=== PATIENT | female | born 1950 | race Two or more races ===

== ENCOUNTER 2025-05-08 12:56 | Emergency (ER) | payer OTHER, SELFPAY ==
--- NOTE | ~2025-05-08 | CT_ITS ---
CLINICAL HISTORY: R facial pain, pulsatile tinntus CT head without contrast Comparison: None available Findings: No acute hemorrhage. No extra-axial fluid collection. No hydrocephalus, mass-effect or herniation. Rodriguez-white differentiation is maintained. White matter is within normal limits for age. No acute orbital pathology. No acute soft tissue abnormality. No fracture. Mucosal thickening and fluid in the maxillary sinuses, [id number]. The other visualized paranasal sinuses are predominantly clear. Partial opacification of the right middle ear cavity with opacification of right mastoid air cells. The left middle ear cavity and mastoid air cells are clear. Impression: No acute intracranial findings. Sinusitis. Right otomastoiditis versus effusion. CTA of the head and neck with 3-D postprocessing Comparison: None available Findings: No significant carotid artery stenosis. Intact vertebral arteries. The vertebral basilar system is patent. The cerebellar and posterior cerebral arteries are intact. The intracranial internal carotid arteries are patent. The middle/anterior cerebral arteries are intact. No aneurysm, abrupt cutoffs or significant stenosis. Patent dural venous sinuses. Hypoplasia of the left transverse sinus, normal variant. No mass, midline shift, hydrocephalus, acute hemorrhage or abnormal contrast enhancement. Trace scarring at the left lung apex. Left lung apex nodule measuring 4 mm. The soft tissues of the head and neck are unremarkable. Impression: No aneurysm, abrupt cutoffs or significant stenosis. Pulmonary nodule measuring 4 mm, likely infectious/inflammatory. No follow-up is required in low risk individuals. High risk individuals have the option of a 1 year follow-up chest CT. This document has been electronically signed by: Yany Vasquez MD on 05/08/2025 18:57:58
[2025-05-08 13:17] VITALS: BP 151/71; PULSE 84; RESP 18; TEMP 36; O2SAT 97; BMI 29.8
--- NOTE | 2025-05-08 13:18 | ED.GENADULT ---
HPI - General Adult General Chief complaint: Ear Problems Stated complaint: gen med Time Seen by Provider: 05/08/25 15:51 History of Present Illness ED Provider: daija ANDERSEN narrative: Author / Clinician: Frankie Goldman MD Chief Complaint History of Present Illness ---74 F f iron deficiency anemia, B12 deficiency, asthma, hyperlipidemia, hypertension, atrophic gastritis, YOEL, eczema, hypertension, dyslipidemia, T2DM recent Tx with doxy, changed to Augmentin 04/20 after [facility] ED visit and CT showing poss mastoiditis. Review of Systems ---now describing pulsatile tinnitus and some headache right side no vision symptoms no focal motor deficits saw ENT about a week ago they told her to stop the Augmentin she had been on that for nearly the entire course without improvement. She is taking Tylenol some improvement. No ear discharge Physical Examination Vital Signs: Physical Exam: Gen: Alert, awake, well appearing, well hydrated. Head: Atraumatic Eyes: Anicteric, Normal conjunctiva. ENT: Moist mucosa, no pallor.Chronic appearing scarring favored over opacification of the tympanic membrane clear canal normal nontender external ear structures no bogginess or erythema over the mastoid and this is nontender. No palpable tenderness in the temporal area or over the temporal artery no TMJ tenderness no trismus clear patent oropharynx no regional lymphadenopathy Neck: Supple. Skin: Respiratory: Breathing comfortably, No distress.Clear to auscultation bilaterally, symmetric chest expansion, No wheeze, rales, ronchi. Cardiovascular: Regular rate and rhythm. No murmurs or rub. Well perfused periphery, warm extremities. No edema. Abdominal: Soft, no objective distension. No palpable masses or obvious organomegaly. No focal tenderness, no guarding, no rebound tenderness or other peritoneal findings. Neuro: Alert. Gross movement of all extremities intact. Psych: Calm --- Assessment & Plan Preliminary Differential: Less likely mastoiditis or otitis given the antibiotic courses, cervical cranial dissection possible given the pulsatile tinnitus Medical Decision Making This is a 74 female with ongoing ear facial pain, CT showed mastoid opacification on April 20 CT , previously been on doxycycline, on course of Augmentin, was seen by ENT it was possibly previously seen hemotympanum that no trauma nor any basilar skull fracture on previous imaging on the We will get angiographic imaging at this time to exclude cervical cranial dissection. At this point this is chronic Ear/facial pain of unclear cause looks well she is certainly not toxic she is able to swallow and speak normally and has follow up on Tuesday in 2 days with the ENT --- Risk: - High: Threat to life/bodily Functions Plan: Initial Plan --- ED Course, Updates [ ] Disposition [ ] Critical Care: [N/A] Related Data Previous Rx's ?Medication ?Instructions ?Recorded gabapentin 300 mg capsule 300 mg PO BEDTIME PRN pain (scale 05/08/25 score 4-6) #7 caps Allergies Allergy/AdvReac Type Severity Reaction Status Date / Time No Known Allergies Allergy Verified 05/08/25 13:20 Physical Exam ED Vital Signs: Vital Signs - 24 hr 05/08/25 13:17 05/08/25 19:41 05/08/25 19:44 Temperature 96.8 F 97.8 F 97.8 F Pulse Rate 84 79 78 Respiratory Rate 18 16 16 Blood Pressure 151/71 H 121/72 121/72 Pulse Oximetry 97 96 96 Oxygen Delivery Method Room Air Room Air Room Air BMI result Body Mass Index 29.8 Course Course Course Narrative: This is a rapid medical exam performed by Radha Brody NP: Additional HPI, ROS, PE not included below will be deferred to primary provider. Patient is a 74y/o F presenting with complaint of right ear pain and pressure for the past month. Has been seen multiple times, has seen ENT, has had CT scan x 2, has been on several courses of antibiotics but sxs persisting. Called ENT office this am but couldn't be seen in office today, referred here. Plan: labs Medical Decision Making Medical Decision Making [facility] Narrative: 74-year-old ongoing ear pain. Not fever not ill or toxic no ear discharge no obvious hemotympanum or signs of tympanic membrane bulging inner ear effusion. She did describe some pulsatile tinnitus I felt it reasonable to exclude cervical cranial dissection. At this point this has been excluded there was still some opacification of the mastoid though there was no overlying erythema there was no tenderness no focal neurologic deficits or significant headache to suggest intracranial extension or other severe complication. In fact when she was seen recently ENT told her to stop antibiotics I agree with this that this is unlikely to be infectious she may need further workup with and she is seeing ENT on Tuesday which is reassuring. Gabapentin and topical lidocaine drops as needed for pain control until that time Lab Data 05/08/25 13:37 05/08/25 13:37 Labs: Lab Results 05/08/25 Range/Units 13:37 WBC 9.1 (4.8-10.8) X10*3/uL RBC 3.97 L (4.20-5.50) X10*6/uL Hgb 12.8 (12.0-16.0) g/dl Hct 38.0 (37.0-47.0) % MCV 95.7 (80.0-98.0) fL MCH 32.2 (27.0-33.0) pg MCHC 33.7 (31.0-35.0) g/dl RDW 12.1 (11.0-16.0) % Plt Count 284 (160-400) X10*3/uL MPV 10.7 (9.4-12.3) fL Immature Gran % (Auto) 0.2 (0.0-0.4) % Neut % (Auto) 68.5 (45-73) % Lymph % (Auto) 21.5 (20-40) % [place] % (Auto) 5.1 (2-11) % Eos % (Auto) 4.1 H (0-4) % Baso % (Auto) 0.6 (0-2) % Lymph # (Auto) 2.0 (1.2-4.9) X10*3/uL [place] # (Auto) 0.5 (0.1-1.2) X10*3/uL Eos # (Auto) 0.4 (0.0-0.4) X10*3/uL Baso # (Auto) 0.1 (0.0-0.2) X10*3/uL Abs Immat Gran (auto) 0.02 (0.00-0.03) X10*3/uL Absolute Neuts (auto) 6.2 (2.0-8.3) x10*3/uL Absolute Nucleated RBC 0.000 (0.0-0.012) X10*3/uL Nucleated RBC % (auto) 0.0 (0.0-0.2) /100WBC ESR 17 (1-30) MM/HR Sodium 141 (135-145) mmol/L Potassium 4.1 (3.3-5.1) mmol/L Chloride 106 (96-108) mmol/L Carbon Dioxide 25 (22-29) mmol/L Anion Gap 14 (12-20) BUN 14 (9-16) mg/dL Creatinine 1.05 (0.5-1.4) mg/dL Estim Creat Clear Calc 54.6 Estimated GFR 52 Random Glucose 173 H (60-115) mg/dL Calcium 9.5 (8.4-10.2) mg/dL Total Bilirubin 0.3 (0.0-1.0) mg/dL AST 27 (5-31) U/L ALT 22 (0-31) U/L Alkaline Phosphatase 82 (39-117) U/L C-Reactive Protein < 0.04 (< or = 0.50) mg/dL Total Protein 7.0 (6.5-8.0) g/dL Albumin 4.2 (3.5-5.0) g/dL Discharge Plan Discharge Clinical Impression: Acute facial pain Patient Disposition: Home, Self-Care Instructions: Earache (ED) Additional Instructions: In the emergency department today you were evaluated. Your ear exam did not suggest an infectious process. You had no fever or chills or tenderness over your mastoid bone. CT was performed with contrast to evaluate your neck and head vessels which was not previously done given that you explain some audible pulsations which can sometimes be caused by a problem with these vessels but no significant or severe abnormality was seen Continue with your previous your nose throat specialist appointment this coming Tuesday in 2 days You can try the medication gabapentin which we have prescribed at nighttime before bed. You can also purchase [id number] otic solution lidocaine drops for the ear and follow the instructions this can sometimes help with the pain __ CT findings that you should follow up with your primary doctor about Impression: Right otomastoiditis CTA: No aneurysm, abrupt cutoffs or significant stenosis. Pulmonary nodule measuring 4 mm, likely infectious/inflammatory. No follow-up is required in low risk individuals. High risk individuals have the option of a 1 year follow-up chest CT. Prescriptions: New gabapentin 300 mg capsule 300 mg PO BEDTIME PRN (Reason: pain (scale score 4-6)) Qty: 7 0RF Interventions: ED Discharge Assessment Last Done: 05/08/25 19:44 Discharge Date/Time: 05/08/25 19:46 Print Language: Serbian
[2025-05-08 13:41] LABS: MANUAL DIFF FLAG NO
[2025-05-08 13:50] LABS: Hematocrit 38.0 % (37.0-47.0); Hemoglobin 12.8 g/dl (12.0-16.0); Imm Gran Abs Auto 0.02 X10*3/uL (0.00-0.03); Imm Gran Pct Auto 0.2 % (0.0-0.4); Lymphocytes Absolute Auto 2.0 X10*3/uL (1.2-4.9); Mean Corpuscular HGB Conc 33.7 g/dl (31.0-35.0); Mean Corpuscular Hemoglobin 32.2 pg (27.0-33.0); Mean Corpuscular Volume 95.7 fL (80.0-98.0); NRBC Abs Auto 0.000 X10*3/uL (0.0-0.012); NRBC Pct Auto 0.0 /100WBC (0.0-0.2); Platelet Count 284 X10*3/uL (160-400); Red Blood Count 3.97 X10*6/uL (4.20-5.50); White Blood Count 9.1 X10*3/uL (4.8-10.8)
[2025-05-08 13:59] LABS: Alanine Aminotransferase 22 U/L (0-31); Albumin Level 4.2 g/dL (3.5-5.0); Alkaline Phosphatase 82 U/L (39-117); Anion Gap 14 (12-20); Aspartate Amino Transferase 27 U/L (5-31); Blood Urea Nitrogen 14 mg/dL (9-16); Calcium 9.5 mg/dL (8.4-10.2); Carbon Dioxide 25 mmol/L (22-29); Chloride 106 mmol/L (96-108); Creatinine Clr Calc Pharmacy 54.6; Estimated Glomerular Filt Rate 52; Potassium 4.1 mmol/L (3.3-5.1); Sodium 141 mmol/L (135-145); Total Protein 7.0 g/dL (6.5-8.0)
--- OUTSIDE RECORDS SUMMARY | 2025-05-08 15:57 | XMS_ITS | Clinical Summary ---
Author Organization [facility] Prior to 10/13/24 Address [address] [place] [address] Care Team Providers Care Manufacturing Team Member Name Role Phone Abraham Roa MD Primary Care Pr ovider Allergies Active Allergy Reactions Criticality Noted Date Comments Moxifloxacin Itching,Rash Low 02/13/2018 Other reaction(s): Rash/Dermatitis Seasonal 10/29/2021 Medications Medication Sig Dispensed Refills Start Date End Date Status lisinopril (PRINIVIL,ZESTRIL) tablet 40 mg Take 1 tablet (40 mg total) by mouth daily. 0 02/17/2023 Active loratadine (CLARITIN) 10 MG tablet Take 1 tablet (10 mg total) by mouth. 0 02/17/2023 Active hydroCHLOROthiazide (HYDRODIURIL) tablet 12.5 mg Take 1 tablet (12.5 mg total) by mouth daily. 0 02/17/2023 Active simvastatin (ZOCOR) tablet 10 mg Take 1 tablet (10 mg total) by mouth every night at bedtime. 0 02/17/2023 Active metFORMIN (GLUCOPHAGE) 850 MG tablet Take 1 tablet (850 mg total) by mouth. 0 02/17/2023 Active Calcium Carb-Cholecalciferol 600-10 MG-MCG TABS Take 1 tablet by mouth 2 (two) times a day. 0 02/20/2023 Active Cyanocobalamin 2500 MCG SUBL TAKE 1 TABLET SUBLINGUAL EVERY 7 DAYS,X90 DAYS 0 07/07/2022 Active simethicone (MYLICON) 80 MG chewable tablet Chew 1 tablet (80 mg total) by mouth. 0 11/11/2022 Active fluticasone (FLONASE) 50 MCG/ACT nasal spray spray or apply 1 spray inside Nose. 0 02/17/2023 Active Trelegy Ellipta 200-62.5-25 MCG/ACT inhaler 1 puff daily. 0 03/14/2023 Active acetaminophen (TYLENOL EXTRA STRENGTH) 500 MG tablet Take 1 tablet (500 mg total) by mouth. 0 Active albuterol (PROVENTIL) (2.5 MG/3ML) 0.083% nebulizer solution Inhale 3 mL (2.5 mg total) into the lungs. 0 02/17/2023 Active meclizine (ANTIVERT) 25 MG tablet Take 1 tablet (25 mg total) by mouth 3 (three) times a day as needed for dizziness. 0 Active famotidine (PEPCID) 20 MG tablet 0 07/19/2023 Active Active Problems Problem Noted Date Diagnosed Date Asthma 03/25/2023 Social History Tobacco Use Types Packs/Day Years Used Date Smoking Tobacco: Never Assessed Sex and Gender Information Value Date Recorded Sex Assigned at Female 03/26/2023 11:53 AM EST Gender Identity Not on file Sexual Orientation Not on file Job Start Date Occupation Industry Not on file Not on file Not on file Last Filed Vital Signs Vital Sign Reading Time Taken Comments Blood Pressure 138/58 11/23/2023 2:32 PM EDT Pulse 83 11/23/2023 2:32 PM EDT Temperature 36.9 C (98.5 F) 11/23/2023 2:32 PM EDT Respiratory Rate 18 09/28/2023 1:00 PM EDT Oxygen Saturation 99% 11/23/2023 2:32 PM EDT Inhaled Oxygen Concentration - - Weight 84.6 kg (186 lb 8.2 oz) 11/23/2023 2:32 P M EDT Height - - Body Mass Index - - Plan of Treatment Health Maintenance Due Date Last Done Comments Hepatitis C Screening 1952 Depression Screening 1964 Preventative Health Evaluation 1970 Colon Cancer Screening (Colonoscopy) 1997 Breast Cancer Screening (Mammogram) 2002 Fall Risk Assessment 2017 Osteoporosis Screening (DEXA Scan) 2017 DTap / Tdap / Td (2 - Td or Tdap) 02/06/2018 02/07/2008 Shingrix-Zoster Vaccine (2 of 2) 04/21/2021 02/24/2021 COVID-19 Vaccine ( season) 2025 02/24/2021, 07/17/2020, 06/26/2020 Influenza Vaccine (#1) 2025 , 03/10/2022, 03/12/2020, Additional history exists RSV Adult > 60+ Yrs or (1 - 1-dose 75+ series) 12/28/2027 Pneumococcal Vaccine Completed 03/16/2023, 05/23/2018, 03/14/2014, Additional history exists Hepatitis B Vaccines Aged Out No long er eligible based on patient's age to complete this topic RSV Ped < 20 months Aged Out No longe r eligible based on patient's age to complete this topic Care Teams Manufacturing Team Member Relationship Specialty Start Date End Date Abraham Roa MD [address] [place] [address] PCP - General 03/23/23
--- OUTSIDE RECORDS SUMMARY | 2025-05-08 15:57 | XMS_ITS | Encounter Summary ---
Author Organization [facility] Address [address] [place] [address] Care Team Providers Care Operations Trainer Name Role Phone Abraham Roa MD Primary Care Pr ovider Encounter Details Date Type Department Care Team (Late st Contact Info) Description 03/21/2025 Results Follow-Up Adult Medicine [address] [phone] Ramona Abraham PA [address] [place] [address] Social History Tobacco Use Types Packs/Day Years Used Date Smoking Tobacco: Never Smokeless Tobacco: Never Alcohol Use Standard Drinks/Week Comments No 0 (1 standard drink = 0.6 oz pur e alcohol) Comments No Sex and Gender Information Value Date Recorded Sex Assigned at Not on file Legal Sex Female 12:52 AM EST Gender Identity Not on file Sexual Orientation Not on file documented as of this encounter Plan of Treatment Upcoming Encounters Date Type Department Care Team (Late Contact Info) Description 05/21/2025 9:45 AM EST Office Visit Pulmonology - [place] [address] [facility] [address] [place] [address] Nick Doyle MD [address] [place] [phone] 06/04/2025 8:30 AM EST Appointment [facility] Bone Density [address] [place] [phone] 06/11/2025 11:00 AM EST Office Visit Adult Medicine [address] [phone] Ramona Abraham PA [address] [place] [address] documented as of this encounter Visit Diagnoses Not on filedocumented in this encounter Additional Health Concerns Assessment Noted Time A fall risk assessment has been complete d for the patient 03/28/2024 2:11 PM EST documented as of this encounter Care Teams Operations Trainer Relationship Specialty Start Date End Date Abraham Roa MD [address] [place] [address] PCP - General Internal Medicine 03/28/24 documented as of this encounter
--- OUTSIDE RECORDS SUMMARY | 2025-05-08 15:57 | XMS_ITS | Continuity of Care Document ---
Author Organization [place] [facility], [facility] Address [address] [place] [address] Care Team Providers Care Performance Architect Name Role Phone GEGEJanell PEREZEVEANMOLXIOMARAJOSE MARIA Primary Care Provider Assessment Encounter Date Assessment Date Assessment LastModified by Organization Details LastModified Time 03/27/2025 03/27/2025 74-year-old female, with a history of type II diabetes mellitus and allergic rhinitis s/p revision ethmoidectomy and frontal exploration performed 10/09/[address] Watts, presents for follow up of recurrent sinusitis. Nasal endoscopy at the last visit was negative for purulence. Patient is still on the prednisone taper, but has nearly finished with Augmentin with little to no improvement in symptoms. Will plan to repeat CT imaging to rule out recurrent frontal and sphenoid sinus disease. If negative, consider referral to neurology for workup of underlying migraine which was previously suspected. Continue with saline irrigation and allergy regimen in the interim. All questions were answered. Not available 03/27/2025 22:24:46 Plan of Treatment Reminders Order Date Submit Date Provider Last Modified By Organization Details Last Modified Time Details Appointments Establish ed 15 2024 10:45A Jerardo FLORES MD Not available Not available Not available Establish ed 15 2025 09:30A Jerardo FLORES MD Not available Not available Not available Lab None recorded. Referral None recorded. Procedures None recorded. Surgeries None recorded. Imaging CT, sinuses, w/o contrast 2024 025 [email or web address] Not available 04/23/2025 15:44:23 Medication Orders None recorded. Patient TargetsNo targets recorded. Patient InstructionsNo instructions recorded. Reason for Referral None Reported. Problems Name Problem SNOMED Code Status Onset Date Resolution Date Notes Provider Name and Address Organization Details Recorded Time Nasal polyp Active 2014 Nasal polyposi s; Note: Date Diagnose d: 5 2:10 PM (471.9) Not Available [facility] 4 02:27:30 Chronic sinusiti s 39822547 Active 2015 Chronic sinusiti s; Note: Date Diagnose d: 5 2:10 PM (473.9) ; Start Date : 05/31/19 15 Sinus itis (chronic ) involvin g more than one sinus but not pansinus itis; Note: Date Diagnose d: 6 11:14 AM (J32.8) Not Available [facility] 4 02:27:40 Seasonal allergic rhinitis 089693111 Active 2015 Other seasonal allergic rhinitis ; Note: Date Diagnose d: 6 11:32 AM (J30.2) Not Available [facility] 4 02:27:48 Exacerba tion of moderate persiste nt asthma 496448279 Active 2016 Moderate persiste nt asthma with (acute) exacerba tion; Note: Date Diagnose d: 7 2:13 PM (J45.41) Not Available [facility] 4 02:27:54 Headache 60308593 Active 2017 Headache ; Note: Date Diagnose d: 8 2:18 PM (R51) Not Available [facility] 4 02:27:54 Dizzines s and giddines s 695397526 Active 2017 Dizzines s and giddines s; Note: Date Diagnose d: 8 2:18 PM (R42) Not Available [facility] 4 02:27:23 Migraine without aura, not refracto ry 965972296 Active 2017 Migraine without aura, not intracta ble, without status migraino jana; Note: Date Diagnose d: 05/12/20 18 2:45 PM (G43.009 ) Not Available [facility] 4 02:27:35 Sensorin eural hearing loss of bilatera l ears 216857187 Active 2018 Sensorin eural hearing loss, bilatera l; Note: Date Diagnose d: 9 11:30 AM (H90.3) Not Available [facility] 4 02:27:28 Disorder of nasal sinus 7851498 Active 2020 Other specifie d disorder s of nose and nasal sinuses; Note: Date Diagnose d: 04/01/20 21 11:03 AM (J34.89) Not Available [facility] 4 02:27:46 Disorder of the nose 44183912 Active 2020 Other specifie d disorder s of nose and nasal sinuses; Note: Date Diagnose d: 04/01/20 21 11:03 AM (J34.89) Not Available [facility] 4 02:27:46 Acute sinusiti s 61090527 Completed 202312/16/2023 Other acute sinusiti s; Note: Date Diagnose d: 06/24/2023 11:18 AM (J01.80) Not Available [facility] 4 02:27:48 Sensorin eural hearing loss of bilatera l ears 990689191 Active 2024 ULI dover [place] - [facility] 5 11:08:32 Bilatera l tinnitus 44636146683 02 Active 2024 Josr Magana, DO [address] [facility],[place] [address], [place], [address] , [place] - [facility] 5 14:29:02 Recurren t acute maxillar y sinusiti s Active 2024 MELYSSA HUANG [address] [facility] [address], [place], [address] , [place] - [facility] 5 10:06:34 Abnormal sensatio n 864765887 Active 2024 MELYSSA HUANG [address], [place], [address] , [place] - [facility] 5 13:01:51 Nasal congesti on 44512181 Active 2024 MELYSSA HUANG [address], [facility] [place], [address] , [facility] - [facility] 13:01:57 Posterio r rhinorrh ea 15465474 Active 2024 MELYSSA HUANG [address] [facility] [place],[facility] [address], [facility] [place], [address] , [place] - [facility] 13:02:02 Well controll ed type 2 diabetes mellitus 245892278 Active 2024 MELYSSA HUANG [address] [facility] [place] [address], [facility] [place], [address] , [place] - [facility] 13:02:36 Hemotymp rosalba of right tympanic cavity 35573340880 42525 Active 2024 MELYSSA HUANG [address] [facility] [place] [address], [facility] [place], [address] , [facility] - [facility] 14:49:03 Problem Notes None recorded. Procedures Surgical History Date Name Laterality Status Provider Name and Address Organization Details Recorded Time CT sinus - Xoran completed MELYSSA HUANG [address] [facility] [place] [address], [place], [address], [facility] - [facility] 05/05/2025 17:59:17 JMSNasal/Sinu s Endoscopy-REYNA OR surgical cavities completed MELYSSA HUANG [address] [facility] [place] [address], [place], [address], [facility] - [facility] 03/21/2025 12:31:32 Comp Audio with Tymps - 45281 & 64820 completed KING COLLINS [address] [facility], [place], [address], [facility] - [facility] 01/28/2025 13:31:46 Imaging Results None recorded. Procedure Notes None recorded. Medical Equipment None Reported. Allergies Allergen ID Allergen Name Allergen Category Reaction Reaction Severity Criticality Documentation Date Start Date Code Code System Note Provider Name and Address Organization Details Recorded Time 84960 moxifloxa césar medicatio n other Not available Not available 09/27/2023 87296 2 RxNorm React ion: unkno wn, unspe cifie d;; Not Available [facility] 4 00:55:47 Medications Name Sig Start Date Stop Date Status Note LastModified by Organization Details LastModified Time losartan 50 mg tablet TAKE 1 TABLET BY MOUTH 1 TIME EACH DAY. active Not Available Not Available No t Available buspirone 5 mg tablet TOME 1 TABLETA POR V A ORAL DOS VECES AL D A active Not Available Not Available No t Available metformin 500 mg tablet 05/21 completed Medicati on ID: [id number] D uration Value: 30 Reason: () Brand Name: dhaval matta Send Method: E-Prescr ibed Sub s Allowed: subs OK Speci al Instruct ion: TOME BENSON TABLETA POR BOCA 2 VECES DIARIO M edicatio nGeneric Name: dhaval matta Not Available Not Available Not Available atorvasta tin 80 mg tablet TOME 1 TABLETA POR V A ORAL TODOS LOS D AL ACOSTARS E active Not Available Not Available No t Available acetamino phen 325 mg tablet TOME DOS TABLETAS POR V A ORAL CADA SEIS HORAS CUANDO SEA NECESARI O FOR MILD PAIN active Not Available Not Available No t Available prednison e 10 mg tablet PLEASE SEE ATTACHED FOR DETAILED DIRECTIO NS active Not Available Not Available No t Available doxycycli ne hyclate 100 mg capsule PLEASE SEE ATTACHED FOR DETAILED DIRECTIO NS active Not Available Not Available No t Available ipratropi um 0.5 mg-albute rol 3 mg (2.5 mg base)/3 mL nebulizat ion soln USE 3 ML VIA NEBULIZE R EVERY 6 TO 8 HOURS NEEDED FOR WHEEZING active Not Available Not Available No t Available albuterol sulfate 2.5 mg/3 mL (0.083 %) solution for nebulizat ion INHALE 3 ML BY NEBULIZA TION EVERY 6 HOURS IF NEEDED FOR WHEEZING active Not Available Not Available No t Available azithromy césar 250 mg tablet TAKE 2 TABLETS BY MOUTH ON DAY 1 THEN 1 TABLET FOR 4 DAYS 01/28 completed Not Available Not Available Not Available ketotifen 0.025 % (0.035 %) eye drops APPLY 1 DROP INTO BOTH EYES TWICE DAILY active Not Available Not Available No t Available clarithro mycin 500 mg tablet 1 tablet by mouth 01/28 completed Medicati on ID: [id number] D uration Value: 20 Prescri bed By Name: MURIEL Kramer nd Name: morgan molina S end Method: E-Prescr ibed Sub s Allowed: subs OK Medic ationGen ericName : morgan omycin Not Available Not Available Not Available FreeStyle Lancets 28 gauge USE INSTRUCT ED TO CHECK BLOOD SUGAR TWICE DAILY active Not Available Not Available No t Available prednison e 20 mg tablet TAKE 2 TAB DAILY X 4 DAYS AND 1 TAB DAILY X4 DAYS 01/28 completed Not Available Not Available Not Available isosorbid e mononitra te ER 30 mg tablet,ex tended release 24 hr 01/28 completed Not Available Not Available Not Available metformin 850 mg tablet TAKE 1 TABLET BY MOUTH 1 (ONE) TIME EACH DAY WITH BREAKFAS T. active Not Available Not Available No t Available meclizine 12.5 mg tablet 05/21 completed Medicati on ID: [id number] D uration Value: 10 Reason: () Brand Name: meclizin e Send Method: E-Prescr ibed Sub s Allowed: subs OK Medic ationGen ericName : meclizin e Not Available Not Available Not Available aspirin 81 mg tablet,de layed release TAKE 1 TABLET BY MOUTH 1 TIME EACH DAY. active Not Available Not Available No t Available acetamino phen ER 650 mg tablet,ex tended release PLEASE SEE ATTACHED FOR DETAILED DIRECTIO NS active Not Available Not Available No t Available meclizine 25 mg tablet TAKE 1 TABLET BY MOUTH 3 TIMES A DAY IF NEEDED FOR DIZZINES S. active Not Available Not Available No t Available benzonata te 100 mg capsule TOME 1 C PSULA POR V A ORAL MARTI VECES AL D A CUANDO SEA NECESARI O FOR COUGH 04/30 completed Not Available Not Available Not Available doxycycli ne monohydra te 100 mg capsule TAKE 1 CAPSULE BY MOUTH TWICE DAILY FOR 7 DAYS 01/28 completed Not Available Not Available Not Available simvastat in 20 mg tablet TOME 1 TABLETA POR V A ORAL TODOS LOS D AL ACOSTARS E active Not Available Not Available No t Available metformin 1,000 mg tablet TOME BENSON TABLETA (1,000 MG TOTAL) POR V A ORAL 1 TIME EACH DAY CON EL DESAYUNO active Not Available Not Available No t Available prednison e 50 mg tablet TAKE 1 TABLET BY MOUTH DAILY FOR 5 DAYS 01/28 completed Not Available Not Available Not Available lidocaine 5 % topical patch APLIQUE UN PARCHE AL D A APPLY TO PAINFUL AREA FOR 12 HOURS PER DAY, REMOVE FOR 12 HOURS active Not Available Not Available No t Available losartan 25 mg tablet 01/28 completed Not Available Not Available Not Available Advair Diskus 500 mcg-50 mcg/dose powder for inhalatio n 05/21 completed Medicati on ID: [id number] D uration Value: 30 Brand Name: Advair Diskus S end Method: E-Prescr ibed Sub s Allowed: subs OK Speci al Instruct ion: INHALE 1 DOSIS POR V?A ORAL DOS VECES AL D?A. ENJU?LOPEZ SE LA BOCA DESPU ?S DE LA INHALACI ?N Medic ationGen ericName : Advair Diskus Not Available Not Available Not Available docusate sodium 100 mg capsule 01/28 completed Medicati on ID: [id number] D uration Value: 30 Brand Name: docusate sodium S end Method: E-Prescr ibed Sub s Allowed: subs OK Speci al Instruct ion: TOME BENSON C?PSULA DOS VECES AL D?A CUANDO SEA NECESARI O Medica tionGene ricName: docusate sodium Not Available Not Available Not Available mometason e 50 mcg/actua tion nasal spray ADMINIST ER 2 SPRAYS INTO EACH NOSTRIL 2 TIMES A DAY. active Not Available Not Available No t Available omeprazol e 20 mg capsule,d elayed release 01/28 completed Medicati on ID: [id number] D uration Value: 90 Brand Name: omeprazo le Send Method: E-Prescr ibed Sub s Allowed: subs OK Speci al Instruct ion: TOME BENSON CAPSULA TODOS LOS EISENBERG Med icationG enericNa me: omeprazo le Not Available Not Available Not Available budesonid e 0.5 mg/2 mL suspensio n for nebulizat ion 1 vial 01/28 completed Medicati on ID: [id number] D uration Value: 30 Brand Name: budhenrique de Send Method: E-Prescr ibed Sub s Allowed: subs OK Speci al Instruct ion: use 1 vial in nebulize r twice daily Me dication GenericN zuleika: budesoni de Not Available Not Available Not Available monteluka st 10 mg tablet TAKE 1 TABLET (10 MG TOTAL) BY MOUTH AT BEDTIME. AT BEDTIME. active Not Available Not Available No t Available cyanocoba cesar (vit B-12) 1,000 mcg sublingua l tablet DISSOLVE 1 TABLET UNDER THE TONGUE DAILY active Not Available Not Available No t Available hydrochlo rothiazid e 25 mg tablet 01/28 completed Medicati on ID: [id number] D uration Value: 30 Brand Name: hydrochl orothiaz joseph Send Method: E-Prescr ibed Sub s Allowed: subs OK Speci al Instruct ion: TAKE 1 TABLET BY MOUTH DAILY Me dication GenericN zuleika: hydrochl orothiaz joseph Not Available Not Available Not Available mupirocin 2 % topical ointment Apply 1 a small amount three times a day 01/28 completed Medicati on ID: [id number] D uration Value: 14 Prescri bed By Name: MURIEL Rooney nd Name: mupiroci n Send Method: E-Prescr ibed Sub s Allowed: subs OK Speci al Instruct ion: place in the nasal cavity 3 times daily to left nostril Medicati onGeneri cName: mupiroci n Not Available Not Available Not Available azelastin e 137 mcg (0.1 %) nasal spray ADMINIST ER 1 SPRAY INTO EACH NOSTRIL 2 TIMES A DAY DIRECTED active Not Available Not Available No t Available albuterol sulfate HFA 90 mcg/actua tion aerosol inhaler INHALE 2 PUFFS BY MOUTH EVERY 4 (FOUR) HOURS IF NEEDED FOR WHEEZING . active Not Available Not Available No t Available lisinopri l 40 mg tablet 01/28 completed Medicati on ID: [id number] D uration Value: 30 Brand Name: lisinopr il Send Method: E-Prescr ibed Sub s Allowed: subs OK Speci al Instruct ion: TOME BENSON TABLETA POR V?A ORAL TODOS LOS D? STOP 20 MG DOSE Med icationG enericNa me: lisinopr il Not Available Not Available Not Available fluticaso ne propionat e 50 mcg/actua tion nasal spray,jana pension 2019 active Medicati on ID: [id number] D uration Value: 90 Brand Name: fluticas one propiona te Send Method: E-Prescr ibed Sub s Allowed: subs OK Speci al Instruct ion: USE 2 SPRAYS IN EACH NOSTRIL ONCE A DAY Medi cationGe nericNam e: fluticas one propiona te Not Available Not Available Not Available loratadin e 10 mg tablet TAKE 1 TABLET BY MOUTH EVERY DAY active Not Available Not Available No t Available amoxicill in 875 mg-potass ium clavulana te 125 mg tablet TOME 1 TABLETA POR V A ORAL CADA 12 HORAS POR 10 D active Not Available Not Available No t Available cyclobenz aprine 5 mg tablet TAKE 1 TABLET BY MOUTH 3 TIMES A DAY,X3 DAYS 01/28 completed Not Available Not Available Not Available Xolair 150 mg subcutane ous solution 03/14 completed Medicati on ID: [id number] D uration Value: 28 Brand Name: Xolair S end Method: E-Prescr ibed Sub s Allowed: subs OK Medic ationGen ericName : Xolair Not Available Not Available Not Available metformin ER 500 mg tablet,ex tended release 24hr (osmotic) 11/07 completed Medicati on ID: [id number] R fransisco: () Brand Name: metformi n Send Method: E-Prescr ibed Sub s Allowed: subs OK Medic ationGen ericName : metformi n Not Available Not Available Not Available Calcium 600 + D(3) 600 mg-5 mcg (200 unit) tablet 2017 active Medicati on ID: [id number] D uration Value: 30 Brand Name: Calcium 600 + D(3) Sen d Method: E-Prescr ibed Sub s Allowed: subs OK Speci al Instruct ion: TOME BENSON TABLETA POR BOCA 2 VECES DIARIO M edicatio nGeneric Name: Calcium 600 + D(3) Not Available Not Available Not Available losartan 100 mg-hydroc hlorothia zide 12.5 mg tablet TAKE 1 TABLET BY MOUTH 1 TIME EACH DAY. active Not Available Not Available No t Available lubiprost one 24 mcg capsule TAKE 1 CAPSULE BY MOUTH TWICE DAILY active Not Available Not Available No t Available calcium 600 mg (as carbonate )-vitamin D3 10 mcg (400 unit) tablet TOME 1 TABLETA POR V A ORAL DOS VECES AL D A active Not Available Not Available No t Available hydrochlo rothiazid e 12.5 mg tablet TAKE 1 TABLET BY MOUTH 1 TIME EACH DAY. active Not Available Not Available No t Available FreeStyle Lite Meter kit USE TO CHECK BLOOD SUGAR ONCE DAILY active Not Available Not Available No t Available FreeStyle Lite Strips USE INSTRUCT ED TO CHECK BLOOD SUGAR TWICE DAILY active Not Available Not Available No t Available Neilmed Sinus Rinse Complete with packet Take 1 packet twice a day by nasal route. 2024 active Not Available Not Available Not Avai lable Xifaxan 550 mg tablet TOME BENSON TABLETA POR V A ORAL MARTI VECES AL D A FOR 14 DAYS 03/18 completed Not Available Not Available Not Available Breo Ellipta 200 mcg-25 mcg/dose powder for inhalatio n 2019 active Medicati on ID: [id number] D uration Value: 30 Brand Name: Breo Ellipta Send Method: E-Prescr ibed Sub s Allowed: subs OK Speci al Instruct ion: INHALE UN SOPLIDO ONCE A DAY Medi cationGe nericNam e: Breo Ellipta Not Available Not Available Not Available Spiriva Respimat 1.25 mcg/actua tion solution for inhalatio n 03/14 completed Medicati on ID: [id number] D uration Value: 30 Brand Name: Spiriva Respimat Send Method: E-Prescr ibed Sub s Allowed: subs OK Speci al Instruct ion: INHALE DANDO DOS SOPLIDOS ONCE A DAY Medi cationGe nericNam e: Spiriva Respimat Not Available Not Available Not Available Dupixent 300 mg/2 mL subcutane ous pen injector active Not Available Not Available Not Available Trelegy Ellipta 200 mcg-62.5 mcg-25 mcg powder for inhalatio n INHALE UN SOPLIDO A DIARIO AT THE SAME TIME EVERY DAY active Not Available Not Available No t Available Vitals Date Recorded Body height Body mass index (BMI) Body weight Systolic And Diastolic Provider Name and Address Organization Details Last Updated DateTime 03/27/2025 157.48 cm 34 kg/m2 02224.18 g 118/78 mm[Hg] Betsy Morales [place] - [facility] 03/27/2025 15:12:44 Social History None recorded. Functional Status None recorded. Mental Status None recorded. Family History Nothing Reported. Medical History No medical history recorded. Gynecological HistoryNo gynecological history recorded. Obstetrics History GPAL:G 0 P 0 0 0 0 Past Encounters Encounter ID Performer Location Encounter Start Date Encounter Closed Date Diagnosis/Indication Diagnosis SNOMED-CT Code Diagnosis ICD10 Code Diagnosis IMO Codes Diagnosis Note [id number] MELYSSA HUANG [facility] [address] [address] 03/21/2025 08:57:41 03/21/2025 10:11:56 Recurrent acute maxillary sinusitis 7024893276 2521633 J01.01 9635538 Abnormal sensation 37939 1999 R44.8 78492983 Nasal congestion 3100138 0 R09.81 39395 Posterior rhinorrhea 758 12527 R09.82 2557 Seasonal a llergic rhinitis 815010542 J30.2 Well contr olled type 2 diabetes mellitus 990667897 E11.9 860995 [id number] MELYSSA HUANG [facility] of [address] [address] 03/27/2025 14:44:40 03/27/2025 15:43:55 Recurrent acute maxillary sinusitis 9330203910 4009513 J01.01 9378761 Abnormal sensation 58260 1999 R44.8 86783652 Nasal congestion 9794105 0 R09.81 96590 Posterior rhinorrhea 758 44471 R09.82 2557 Seasonal a llergic rhinitis 146053839 J30.2 Well contr olled type 2 diabetes mellitus 271162923 E11.9 762723 Health Concerns Section Related Observation LastModified by Organization Detai ls LastModified Time None Recorded Concern Status LastModified by Organization Details LastModified Time None Recorded Payers Encounter Date Sequence Insurance Name Policy Number Policy Macedo Covered Member ID Macedo Member ID Guarantor Name 03/27/2025 1 [facility] - DOS ON OR AFTER 2022 - LONG TERM OPTIONS AND ONE CARE (MEDICARE REPLACEMENT/ADV ANTAGE - PPO) Sharri Pruett [id number] Sharri Pruett Notes Date Note Type Note Provider Name and Address Organization Details Recorded Time 03/27/2025 text/html ROS as noted in the HPI 74-year-old female, with a history of type II diabetes mellitus and allergic rhinitis s/p revision ethmoidectomy and frontal exploration performed 10/09/[address] Watts, presents for follow up of recurrent sinusitis. Patient is still on the prednisone taper and has a day left of Augmentin, however she is still having persistent pain in her cheeks, forehead, and the left side of her head. Denies fever and further discolored nasal drainage. RIP WATTS MD [address] [place] [address], [phone], [facility] - [facility] 03/28/2025 08:08:34 OBGyn Episode No OBEpisode recorded.
--- OUTSIDE RECORDS SUMMARY | 2025-05-08 15:57 | XMS_ITS | Continuity of Care Document ---
Author Organization [place] - [facility], [facility] Address [address] [place] [address] Care Team Providers Care Air Intercept Controller Name Role Phone LISA ROBERTSON Primary Care Provider Assessment Encounter Date Assessment Date Assessment LastModified by Organization Details LastModified Time 03/21/2025 03/21/2025 74-year-old female, with a history of allergic rhinitis s/p revision ethmoidectomy and frontal exploration performed 10/09/[address] Argueta, presents for evaluation of recurrent sinusitis. There is no appreciable purulence on anterior rhinoscopy and nasal endoscopy today. Patient is currently on a 10-day course of Augmentin prescribed by her primary care provider. Given her worsening facial pressure, will also plan to start her on a short prednisone taper to help reduce inflammation and swelling. Adverse effects were discussed. She has type II diabetes mellitus and has not been checking her blood sugar levels regularly, however her most recent vflxa-hl-gisg reading from a couple of days ago was between 130-140. I spoke with the triage nurse working with her primary care provider after today's visit who gave medical clearance for the prednisone taper. Her current A1c is 6.9 and she has a follow-up scheduled with them on 03/25/25. I will plan to see her back in 1-2 weeks to ensure resolution of the infection. Recommend she use saline irrigation and continue her allergy regimen in the interim. All questions were answered. Not available 03/21/2025 13:01:28 Plan of Treatment Reminders Order Date Submit Date Provider Last Modified By Organization Details Last Modified Time Details Appointments Establish ed 15 2024 10:45A M JOSR FLORES MD Not available Not available Not available Establish ed 15 2025 09:30A M JOSR FLORES MD Not available Not available Not available Lab None recorded. Referral None recorded. Procedures None recorded. Surgeries None recorded. Imaging None recorded. Medication Orders Neilmed Sinus Rinse Complete with packet [address] [id number], [address] [place], [address], 03/21/2025 10:07:17 prednison e 10 mg tablet [address] [id number], [address] [place], [address], 03/21/2025 13:00:53 Patient TargetsNo targets recorded. Patient InstructionsNo instructions recorded. Reason for Referral None Reported. Problems Name Problem SNOMED Code Status Onset Date Resolution Date Notes Provider Name and Address Organization Details Recorded Time Nasal polyp Active 2014 Nasal polyposi s; Note: Date Diagnose d: 5 2:10 PM (471.9) Not Available [facility] 4 02:27:30 Chronic sinusiti s 09232933 Active 2015 Chronic sinusiti s; Note: Date Diagnose d: 5 2:10 PM (473.9) ; Start Date : 05/31/19 15 Sinus itis (chronic ) involvin g more than one sinus but not pansinus itis; Note: Date Diagnose d: 6 11:14 AM (J32.8) Not Available [facility] 4 02:27:40 Seasonal allergic rhinitis 571308072 Active 2015 Other seasonal allergic rhinitis ; Note: Date Diagnose d: 6 11:32 AM (J30.2) Not Available [facility] 4 02:27:48 Exacerba tion of moderate persiste nt asthma 052852273 Active 2016 Moderate persiste nt asthma with (acute) exacerba tion; Note: Date Diagnose d: 7 2:13 PM (J45.41) Not Available [facility] 4 02:27:54 Headache 97784469 Active 2017 Headache ; Note: Date Diagnose d: 8 2:18 PM (R51) Not Available [facility] 4 02:27:54 Dizzines s and giddines s 161126824 Active 2017 Dizzines s and giddines s; Note: Date Diagnose d: 8 2:18 PM (R42) Not Available [facility] 4 02:27:23 Migraine without aura, not refracto ry 969162890 Active 2017 Migraine without aura, not intracta ble, without status migraino jana; Note: Date Diagnose d: 05/12/20 18 2:45 PM (G43.009 ) Not Available [facility] 4 02:27:35 Sensorin eural hearing loss of bilatera l ears 522894482 Active 2018 Sensorin eural hearing loss, bilatera l; Note: Date Diagnose d: 9 11:30 AM (H90.3) Not Available [facility] 4 02:27:28 Disorder of nasal sinus 8476313 Active 2020 Other specifie d disorder s of nose and nasal sinuses; Note: Date Diagnose d: 04/01/20 21 11:03 AM (J34.89) Not Available [facility] 4 02:27:46 Disorder of the nose 50764314 Active 2020 Other specifie d disorder s of nose and nasal sinuses; Note: Date Diagnose d: 04/01/20 21 11:03 AM (J34.89) Not Available [facility] 4 02:27:46 Acute sinusiti s 91567212 Completed 202312/16/2023 Other acute sinusiti s; Note: Date Diagnose d: 06/24/2023 11:18 AM (J01.80) Not Available [facility] hospital 4 02:27:48 Sensorin eural hearing loss of bilatera l ears 776134835 Active 2024 ULI dover [place] - [facility] 5 11:08:32 Bilatera l tinnitus 95005655407 02 Active 2024 Josr Magana, [address], [place], [place], [address] , [facility] - [facility] [place] 5 14:29:02 Recurren t acute maxillar y sinusiti s Active 2024 MELYSSA HUANG [address], [place], [place], [address] , [place] - [facility] [place] 5 10:06:34 Abnormal sensatio n 675093306 Active 2024 MELYSSA HUANG [address], [place], [place], [address] , [place] - [facility] [place] 5 13:01:51 Nasal congesti on 98790499 Active 2024 MELYSSA HUANG [address], [place], [place], [address] , [place] - [facility] [place] 5 13:01:57 Posterio r rhinorrh ea 75618372 Active 2024 MELYSSA HUANG [address], [place], [place], [address] , [place] - [facility] [place] 13:02:02 Well controll ed type 2 diabetes mellitus 533606466 Active 2024 MELYSSA HUANG [address], [place], [place], [address] , 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 - [facility] [place] 14:49:03 Problem Notes None recorded. Procedures Surgical History Date Name Laterality Status Provider Name and Address Organization Details Recorded Time CT sinus - Xoran completed MELYSSA HUANG [address], [place], [address], [facility] 05/05/2025 17:59:17 5 JMSNasal/Sinu s Endoscopy-REYNA OR surgical cavities completed MELYSSA HUANG [address] [facility],[place] [address], [place], [address], [facility] 03/21/2025 12:31:32 5 Comp Audio with Tymps - 84610 & 04459 completed KING COLLINS [address] [facility] [address], [place], [address], [facility] 01/28/2025 13:31:46 Imaging Results None recorded. Procedure Notes None recorded. Medical Equipment None Reported. Allergies Allergen ID Allergen Name Allergen Category Reaction Reaction Severity Criticality Documentation Date Start Date Code Code System Note Provider Name and Address Organization Details Recorded Time 07785 moxifloxa césar medicatio n other Not available Not available 09/27/2023 81559 2 RxNorm React ion: unkno wn, unspe cifie d;; Not Available [facility] 4 00:55:47 Medications Name Sig Start Date [...] mg tablet 05/21 completed Medicati on ID: [id number] D uration Value: 30 Reason: () Brand Name: dhaval matta Send Method: E-Prescr ibed Sub s Allowed: subs OK Speci al Instruct ion: TOME BENSON TABLETA POR BOCA 2 VECES DIARIO M edicatio nGeneric Name: dhaval n Not Available Not Available Not Available atorvasta [...] by mouth 01/28 completed Medicati on ID: [id number] D uration Value: 20 Prescri bed By Name: MURIEL Kramer nd Name: morgan molina S end Method: E-Prescr ibed Sub s Allowed: subs OK Medic ationGen ericName : clarithr omycin Not Available Not Available Not Available [...] mg tablet 05/21 completed Medicati on ID: [id number] D uration Value: 10 Reason: () Brand [...] inhalatio n 05/21 completed Medicati on ID: [id number] D uration Value: 30 Brand Name: Advair [...] mg capsule 01/28 completed Medicati on ID: [id number] D uration Value: 30 Brand Name: docusate [...] elayed release 01/28 completed Medicati on ID: [id number] D uration Value: 90 Brand Name: omeprazo le Send Method: E-Prescr ibed Sub s Allowed: subs OK Speci al Instruct ion: TOME BENSON CAPSULA TODOS LOS EISENBERG Med icationG enericNa me: omeprazo le Not Available Not Available Not Available budesonid e 0.5 mg/2 mL suspensio n for nebulizat ion 1 vial 01/28 completed Medicati on ID: [id number] D uration Value: 30 Brand Name: budesoni de Send Method: E-Prescr ibed Sub s [...] mg tablet 01/28 completed Medicati on ID: [id number] D uration Value: 30 Brand Name: hydrochl orothiaz joseph Send Method: E-Prescr ibed Sub s Allowed: subs OK Speci al Instruct ion: TAKE 1 TABLET BY MOUTH DAILY Me dication GenericN zuleika: hydrochl orothiaz joseph Not Available Not Available Not Available mupirocin 2 % topical ointment Apply 1 a small amount three times a day 01/28 completed Medicati on ID: [id number] D uration Value: 14 Prescri bed By Name: MURIEL Rooney nd Name: alyssia n Send Method: E-Prescr ibed Sub s Allowed: subs OK Speci al Instruct ion: place in the nasal cavity 3 times daily to left nostril Medicati onGeneri cName: darleenroci n Not Available Not Available Not Available [...] mg tablet 01/28 completed Medicati on ID: [id number] D uration Value: 30 Brand Name: lisinopr il Send Method: E-Prescr ibed Sub s Allowed: subs OK Speci al Instruct ion: TOME BENSON TABLETA POR V?A ORAL TODOS LOS D? STOP 20 MG DOSE Med icationG enericNa me: lisinopr il Not Available Not Available Not Available fluticaso ne propionat e 50 mcg/actua tion nasal spray,jana pension 2019 active Medicati on ID: [id number] D uration Value: 90 Brand Name: fluticas [...] ous solution 03/14 completed Medicati on ID: [id number] D uration Value: 28 Brand Name: Xolair S end Method: E-Prescr ibed Sub s Allowed: subs OK Medic ationGen ericName : Xolair Not Available Not Available Not Available metformin ER 500 mg tablet,ex tended release 24hr (osmotic) 11/07 completed Medicati on ID: [id number] R fransisco: () Brand Name: metformi n Send Method: E-Prescr ibed Sub s Allowed: subs OK Medic ationGen ericName : metformi n Not Available Not Available Not Available Calcium 600 + D(3) 600 mg-5 mcg (200 unit) tablet 2017 active Medicati on ID: [id number] D uration Value: 30 Brand Name: Calcium [...] inhalatio n 2019 active Medicati on ID: [id number] D uration Value: 30 Brand Name: Breo Ellipta Send Method: E-Prescr ibed Sub s Allowed: subs OK Speci al Instruct ion: INHALE UN SOPLIDO ONCE A DAY Medi cationGe nericNam e: Breo Ellipta Not Available Not Available Not Available Spiriva Respimat 1.25 mcg/actua tion solution for inhalatio n 03/14 completed Medicati on ID: [id number] D uration Value: 30 Brand Name: Spiriva [...] height Body mass index (BMI) Body weight Provider Name and Address Organization Details Last Updated DateTime 03/21/2025 157.48 cm 34 kg/m2 94922.18 g Mitchell Cardenas [place] - [facility] 03/21/2025 09:10:34 Social History None recorded. Functional Status None recorded. Mental Status None recorded. Family History Nothing Reported. Medical History No medical history recorded. Gynecological HistoryNo gynecological history recorded. Obstetrics History GPAL:G 0 P 0 0 0 0 Past Encounters Encounter ID Performer Location Encounter Start Date Encounter Closed Date Diagnosis/Indication Diagnosis SNOMED-CT Code Diagnosis ICD10 Code Diagnosis IMO Codes Diagnosis Note [id number] MELYSSA HUANG [facility] on [address] [place] [address] 03/21/2025 08:57:41 03/21/2025 10:11:56 Recurrent acute maxillary sinusitis 1519221167 9817858 J01.01 6552643 Abnormal sensation 44694 1999 R44.8 16780765 Nasal congestion 3175549 0 R09.81 01630 Posterior rhinorrhea 758 77874 R09.82 2557 Seasonal a llergic rhinitis 280996912 J30.2 Well contr olled type 2 diabetes mellitus 974996113 E11.9 711765 Health Concerns Section Related Observation LastModified by Organization Detai ls LastModified Time None Recorded Concern Status LastModified by Organization Details LastModified Time None Recorded Payers Encounter Date Sequence Insurance Name Policy Number Policy Macedo Covered Member ID Macedo Member ID Guarantor Name 03/21/2025 1 [facility] - DOS ON OR AFTER 2022 - [employer] (MEDICARE REPLACEMENT/ADV ANTAGE - PPO) Sharri Pruett [id number] Sharri Pruett Notes Date Note Type Note Provider Name and Address Organization Details Recorded Time 03/21/2025 text/html ROS as noted in the HPI 74-year-old female, with a history of allergic rhinitis s/p revision ethmoidectomy and frontal exploration performed 10/09/[address] Argueta, presents with her daughter for evaluation of recurrent sinusitis. Patient was prescribed a 10-day course of Augmentin 3 days ago by her primary care provider for facial pressure, headache, and yellow-green nasal discharge. She states the pain in her cheeks, forehead, and left side of the head have worsened over the past few days. Patient also endorses nasal congestion and postnasal drip. Denies fever. Last sinus infection was a year ago, but not as bad as it is right now. History of type II diabetes. She admits she does not regularly check her blood sugar levels. Most recent reading from a couple of days ago was 130-140. SAMIR ALMANZA MD [address] [place] [address], [address], [facility] - [facility] 03/21/2025 16:53:23 OBGyn Episode No OBEpisode recorded.
--- OUTSIDE RECORDS SUMMARY | 2025-05-08 15:57 | XMS_ITS | Encounter Summary ---
Author Organization [facility] Address [address] [place] [address] Care Team Providers Care Credit Risk Manager Name Role Phone Abraham Roa MD Primary Care Pr ovider Encounter Details Date Type Department Care Team (Late Contact Info) Description 04/24/2025 Results Follow-Up Adult Medicine [address] [phone] Abraham Roa MD [address] [place] [address] Social History Tobacco Use Types Packs/Day Years [...] 9:45 AM EST Office Visit Pulmonology - [address] [place] [address] Nick Doyle MD [address] [place] [address] 06/04/2025 8:30 AM EST Appointment [facility] [address] [place] [address] 06/11/2025 11:00 AM EST Office Visit Adult Medicine [address] [phone] Ramona Abraham PA [address] [place] [address] documented as of this encounter Visit Diagnoses Not on filedocumented in this encounter Additional Health Concerns Assessment Noted Time A fall risk assessment has been complete d for the patient 03/28/2024 2:11 PM EST documented as of this encounter Care Teams Credit Risk Manager Relationship Specialty Start Date End Date Abraham Roa MD [address] [place] [address] PCP - General Internal Medicine 03/28/24 documented as of this encounter
--- OUTSIDE RECORDS SUMMARY | 2025-05-08 15:57 | XMS_ITS | Encounter Summary ---
Author Organization [facility] Address [address] [place] [address] Care Team Providers Care Shoe Trimmer Name Role Phone Abraham Roa MD Primary Care Pr ovider Encounter Details Date Type Department Care Team (Late Contact Info) Description 04/29/2025 Telephone Adult Medicine [address] [phone] Abraham Roa MD [address] [place] [address] Social History Tobacco Use Types Packs/Day Years [...] on file documented as of this encounter Progress Notes * Marietta Lake RN - 05/03/2025 3:25 PM EST Called pt and advised her of the message below from Dr. Roa. She is in agreement with this plan but is hesitant r/t the intermittent dizziness she is currently experiencing r/t head/ear congestion. She was seen in the office for these symptoms on 04/26/25 referred to ENT and started on antibiotics. She states she will start the medication tomorrow as she took her other medications today, rycjemdf92 mg and HCTZ 12.5 mg. * Abraham Roa MD - 05/03/2025 3:05 PM EST Pls inform the patient that She should try the medication. Any medicine has the possibility of sideeffects and the new medications are similar to what she was on before just a combined pill now. If she has side effects she can report this to us but she would not know unless she tries the medicine and her blood pressure was very high. Thanks * MELYSSA Gustafson - 05/03/2025 10:05 AM EST Saw PCP 04/26 and medication changed. FYI PCP * Dolores Polanco MA - 05/02/2025 1:10 PM EST Ramona, Please review patient's TE message, she did not start her new medications because of the secondary effects. * Violette Patel - 04/29/2025 2:36 PM EST Medication Problem: Patient is aware that Dr Roa is out of office until 05/01 - will need [employer] [employer] when calling her back What is the name of the medication patient is having a problem with?: losartan-hydroCHLOROthiazide (Hyzaar) 100-12.5 mg per tablet What is the problem?: Patient states pharmacy told her of some side effects in which now she is afraid to take this increased dosage Who is calling about the problem? : The patient Is this a NEW medication?: yes How long has the patient been taking this medication? Hasn't taken the new dosage yet Who prescribed this medication for the patient? Abraham Roa MD Who is patients PCP?: Abraham Roa MD Payor: [facility] / Plan: [facility] / Product Type: *No Product type* / documented in this encounter Plan of Treatment Upcoming Encounters Date Type Department Care Team (Late st Contact Info) Description 05/21/2025 9:45 AM EST Office Visit Pulmonology - [place] [address] [facility] [address] [place] [address] Nick Doyle MD [address] [place] [address] 06/04/2025 8:30 AM EST Appointment [facility] [address] [place] [phone] 06/11/2025 11:00 AM EST Office Visit Adult Medicine [address] [phone] Ramona Abraham PA [address] [place] [address] documented as of this encounter Visit Diagnoses Not on filedocumented in this encounter Additional Health Concerns Assessment Noted Time A fall risk assessment has been complete d for the patient 03/28/2024 2:11 PM EST documented as of this encounter Care Teams Shoe Trimmer Relationship Specialty Start Date End Date Abraham Roa MD [address] [place] [address] PCP - General Internal Medicine 03/28/24 documented as of this encounter
--- OUTSIDE RECORDS SUMMARY | 2025-05-08 15:57 | XMS_ITS | Data Portability ---
Author Organization [place] [facility], Allergy Address [address] [address] Care Team Providers Care Spout Liner Helper Name Role Phone Janell ROBERTSONRAZIAJOSE MARIA Primary Care Provider Assessment Encounter Date Assessment Date Assessment LastModified by Organization Details LastModified Time 01/28/2025 01/28/2025 The patient has evidence today of significant hearing loss in both ears, as noted above. We discussed that the patient would be an excellent candidate for hearing amplification and discussed its benefits which include improved hearing, potential tinnitus reduction, reduction in the rate of cognitive decline, and reduction in the prevalence of depression or mental health disorders. Otologic examination today does not reveal any contraindications for the use of hearing amplification. The patient would like to pursue this, I will provide them with medical clearance today. I provided them a list of labor arbitrator hearing office's within the region to choose from. [email or web address] Not available 01/28/2025 14:28:58 03/21/2025 03/21/2025 74-year-old fema roxanna, with a history of allergic rhinitis s/p revision ethmoidectomy and frontal exploration performed 10/09/[address] Watts, presents for evaluation of recurrent sinusitis. There [...] sugar levels regularly, however her most recent nkaku-kk-odip reading from a couple of days ago [...] questions were answered. Not available 03/21/2025 13:01:28 03/27/2025 03/27/2025 74-year-old femjoanna mcknight, with a history of type II diabetes [...] questions were answered. Not available 03/27/2025 22:24:46 04/30/2025 04/30/2025 74-year-old [place]-speaking female, with a history of type II diabetes mellitus and allergic rhinitis s/p revision ethmoidectomy and frontal exploration performed 10/09/[address] Watts, presents for follow-up of recurrent sinusitis and sinus imaging. In-office CT sinus performed today demonstrates partial opacification of the bilateral maxillary sinuses, right greater than left. Previous nasal endoscopy was negative for purulence. 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 Patient was advised to complete Augmentin course and take Tylenol as needed for pain management. Will hold off on additional pharmaceutical therapy at this time. I will arrange follow-up with one of the surgeons for reevaluation and further guidance. All questions were answered. Case discussed with Dr. Watts who agrees with this plan. Not available 05/05/2025 17:57:13 Plan of Treatment Reminders Order Date Submit Date Provider Last Modified By Organization Details Last Modified Time Details Appointments Establish ed 15 2024 10:45A M JOSR FLORES MD Not available Not available Not available Establish ed 15 2025 09:30A M JOSR FLORES MD Not available Not available Not available Lab unlisted lab - C-anca+P- anca w/reflex 2024 JOHN [facility] (Centralized Electronic Ordering - All Locations), Patient Can Go To The Location Of Their Choice, [id number] 05/07/2025 16:27:57 myelopero xidase, QN, plasma 2024 025 JOHN [facility] (Centralized Electronic Ordering - All Locations), Patient Can Go To The Location Of Their Choice, [id number] 05/07/2025 16:27:57 ESR (erythroc yte sedimenta tion rate), blood 2024 JOHN [facility] (Centralized Electronic Ordering - All Locations), Patient Can Go To The Location Of Their Choice, [id number] 05/01/2025 14:52:17 CBC w/ auto diff 2024 HIAWATHA [facility] (Centralized Electronic Ordering - All Locations), Patient Can Go To The Location Of Their Choice, [id number] 05/07/2025 16:27:57 ige, total, serum 2024 HIAWATHA [facility] (Centralized Electronic Ordering - All Locations), Patient Can Go To The Location Of Their Choice, [address] 05/07/2025 16:27:58 Referral None recorded. Procedures None recorded. Surgeries None recorded. Imaging CT, sinuses, w/o contrast 2024 Not available 05/01/2025 11:05:18 CT, sinuses, w/o contrast 2024 [email or web address] Not available 04/23/2025 15:44:23 Medication Orders Neilmed Sinus Rinse Complete with packet 2024 [facility]acy #[id number], [address] [place] [address], [place], [address], 03/21/2025 10:07:17 prednison e 10 mg tablet 2024 025 [facility] #[id number], [address] [facility], [place], [address], 03/21/2025 13:00:53 Patient TargetsNo targets recorded. Patient InstructionsNo instructions recorded. Reason for Referral None Reported. Results Created Date Observation Date Name Description Value Unit Range Abnormal Flag Note LastModifiedBy Organization Detail LastModifiedTime 05/02/2005/02/2025 CBC WITH DIFFE RENTI AL/PL ATELE T WBC 6.9 x10e3 /uL 3.4-10 .8 normal Not Available [facility] ([facility]) [address] [place], [address], 05/07/2025 16:27:56 05/02/20 25 05/02/2025 CBC WITH DIFFE RENTI AL/PL ATELE T RBC 3.59 x10e6 /uL 3.77-5 .28 below low normal Not Available [facility] ([facility]) [address] [place], [address], 05/07/2025 16:27:56 05/02/20 25 05/02/2025 CBC WITH DIFFE RENTI AL/PL ATELE T hemoglobin 11.7 g/dL 11.1-1 5.9 normal Not Available [facility] ([facility]) [address] [place], [address], 05/07/2025 16:27:56 05/02/20 25 05/02/2025 CBC WITH DIFFE RENTI AL/PL ATELE T hematocrit 34.6 % 34.0-4 6.6 normal Not Available [facility] ([facility]) [address] [place], [address], 05/07/2025 16:27:56 05/02/20 25 05/02/2025 CBC WITH DIFFE RENTI AL/PL ATELE T MCV 96 fL 79-97 normal Not Available [facility] ([facility]) [address] [place], [address], 05/07/2025 16:27:56 05/02/20 25 05/02/2025 CBC WITH DIFFE RENTI AL/PL ATELE T MCH 32.6 pg 26.6-3 3.0 normal Not Available [facility] ([facility]) [address] [facility], [place], [address], 05/07/2025 16:27:56 05/02/20 25 05/02/2025 CBC WITH DIFFE RENTI AL/PL ATELE T MCHC 33.8 g/dL 31.5-3 5.7 normal Not Available [facility] ([facility]) [address] [place], [address], 05/07/2025 16:27:56 05/02/20 25 05/02/2025 CBC WITH DIFFE RENTI AL/PL ATELE T RDW 11.6 % 11.7-1 5.4 below low normal Not Available [facility] ([facility]) [address] [facility], [place], [address], 05/07/2025 16:27:56 05/02/20 25 05/02/2025 CBC WITH DIFFE RENTI AL/PL ATELE T platelets 283 x10e3 /uL 150-45 0 normal Not Available [facility] ([facility]) [address] [facility], [place], [address], 05/07/2025 16:27:56 05/02/20 25 05/02/2025 CBC WITH DIFFE RENTI AL/PL ATELE T neutrophils 53 % not estab. normal Not Available [facility] ([facility]) [address] [place], [address], 05/07/2025 16:27:56 05/02/20 25 05/02/2025 CBC WITH DIFFE RENTI AL/PL ATELE T lymphs 31 % not estab. normal Not Available [facility] ([facility]) [address] [place], [address], 05/07/2025 16:27:56 05/02/20 25 05/02/2025 CBC WITH DIFFE RENTI AL/PL ATELE T monocytes 7 % not estab. normal Not Available [facility] ([facility]) [address] [facility], [place], [address], 05/07/2025 16:27:56 05/02/20 25 05/02/2025 CBC WITH DIFFE RENTI AL/PL ATELE T eos 8 % not estab. normal Not Available [facility] ([facility]) [address] [facility], [place], [address], 05/07/2025 16:27:56 05/02/20 25 05/02/2025 CBC WITH DIFFE RENTI AL/PL ATELE T basos 1 % not estab. normal Not Available [facility] ([facility]) [address] [facility], [place], [address], 05/07/2025 16:27:56 05/02/20 25 05/02/2025 CBC WITH DIFFE RENTI AL/PL ATELE T immature cells [employer] ENGINEER Not Available [facility] ([facility]) [address] [place], [address], 05/07/2025 16:27:56 05/02/20 25 05/02/2025 CBC WITH DIFFE RENTI AL/PL ATELE T neutrophils (absolute) 3.7 x10e3 /uL 1.4-7. 0 normal Not Available [facility] ([facility]) [address] [place], [address], 05/07/2025 16:27:56 05/02/20 25 05/02/2025 CBC WITH DIFFE RENTI AL/PL ATELE T lymphs (absolute) 2.1 x10e3 /uL 0.7-3. 1 normal Not Available [facility] ([facility]) [address] [place], [address], 05/07/2025 16:27:56 05/02/20 25 05/02/2025 CBC WITH DIFFE RENTI AL/PL ATELE T monocytes(ab solute) 0.5 x10e3 /uL 0.1-0. 9 normal Not Available [facility] ([facility]) [address] [facility], [place], [address], 05/07/2025 16:27:56 05/02/20 25 05/02/2025 CBC WITH DIFFE RENTI AL/PL ATELE T eos (absolute) 0.5 x10e3 /uL 0.0-0. 4 above high normal Not Available [facility] ([facility]) [address] [place], [address], 05/07/2025 16:27:56 05/02/20 25 05/02/2025 CBC WITH DIFFE RENTI AL/PL ATELE T baso (absolute) 0.0 x10e3 /uL 0.0-0. 2 normal Not Available [facility] ([facility]) [address] [facility], [place], [address], 05/07/2025 16:27:56 05/02/20 25 05/02/2025 CBC WITH DIFFE RENTI AL/PL ATELE T immature granulocytes 0 % not estab. Not Available [facility] ([facility]) [address] [place], [address], 05/07/2025 16:27:56 05/02/20 25 05/02/2025 CBC WITH DIFFE RENTI AL/PL ATELE T immature grans (abs) 0.0 x10e3 /uL 0.0-0. 1 Not Available [facility] ([facility]) [address] [place], [address], 05/07/2025 16:27:56 05/02/20 25 05/02/2025 CBC WITH DIFFE RENTI AL/PL ATELE T NRBC [employer] SYSTEM[employer] ENGINEER Not Available [facility] ([facility]) [address] [place], [address], 05/07/2025 16:27:56 05/02/20 25 05/02/2025 CBC WITH DIFFE RENTI AL/PL ATELE T hematology comments: [employer] SYSTEM[employer] ENGINEER Not Available [facility] ([facility]) [address] [facility], [place], [address], 05/07/2025 16:27:56 05/02/20 25 05/07/2025 C-ANC A+P-A NCA W/REF LUZ cytoplasmic (C-anca) <1:20 titer neg:<1 :20 Not Available [facility] ([facility]) [address] [facility], [place], [address], 05/07/2025 16:27:57 05/02/20 25 05/07/2025 C-ANC A+P-A NCA W/REF LUZ perinuclear (P-anca) <1:20 titer neg:<1 :20 The prese nce of posit elvis fluor escen ce exhib iting P-ANC A or C-ANC A patte rns alone is not speci fic for the diagn osis of Wegen er's Granu lomat osis (WG) or micro scopi c polya ngiit is. Decis ions about treat ment shoul d not be based solel y on ANCA IFA resul ts. The Inter natio nal ANCA Group Conse nsus recom mends follo w up testi ng of posit elvis sera with both NJ-3 and MPO-A NCA enzym e immun oassa ys. As many as 5% serum sampl es are posit elvis only by EIA. Ref. AM J Clin Patho l 1999; 111:5 07-51 3. Not Available [facility] ([facility]) [address] [facility], [place], [address], 05/07/2025 16:27:57 05/02/20 25 05/07/2025 MYELO PEROX IDASE (MPO) myeloperoxid ase (mpo) 305 pmol/ L 0-469 Low CVD Risk <470 Moder ate Risk 470 - 539 High Risk >539 Not Available [facility] ([facility]) [address] [facility], [place], [address], 05/07/2025 16:27:57 05/02/20 25 05/03/2025 IMMUN OGLOB ULIN E, TOTAL immunoglobul in E, total 79 IU/mL 6-495 Not Available [facility] ([facility]) [address] [facility], [place], [address], 05/07/2025 16:27:58 05/02/20 25 05/03/2025 ERYTH ROCYT E SEDIM ENTAT ION RATE erythrocyte sedimentatio n rate 10 mm/HR 0-40 normal Not Available [facility] ([facility]) [address] [facility], [place], [address], 05/07/2025 16:27:58 01/29/20 audio gram No observ ation record ed. BARCODE Not Available 2024 15:28:36 Result Notes None recorded. Problems Name Problem SNOMED Code Status Onset Date Resolution Date Notes Provider Name and Address Organization Details Recorded Time Nasal polyp Active 2014 Nasal polyposi s; Note: Date Diagnose d: 5 2:10 PM (471.9) Not Available [facility] 4 02:27:30 Chronic sinusiti s 06707607 Active 2015 Chronic sinusiti s; Note: Date Diagnose d: 5 2:10 PM (473.9) ; Start Date : 05/31/19 15 Sinus itis (chronic ) involvin g more than one sinus but not pansinus itis; Note: Date Diagnose d: 6 11:14 AM (J32.8) Not Available [facility] 4 02:27:40 Seasonal allergic rhinitis 821293707 Active 2015 Other seasonal allergic rhinitis ; Note: Date Diagnose d: 6 11:32 AM (J30.2) Not Available [facility] 4 02:27:48 Exacerba tion of moderate persiste nt asthma 106476212 Active 2016 Moderate persiste nt asthma with (acute) exacerba tion; Note: Date Diagnose d: 7 2:13 PM (J45.41) Not Available [facility] 4 02:27:54 Headache 32395568 Active 2017 Headache ; Note: Date Diagnose d: 8 2:18 PM (R51) Not Available [facility] 4 02:27:54 Dizzines s and giddines s 793628414 Active 2017 Dizzines s and giddines s; Note: Date Diagnose d: 8 2:18 PM (R42) Not Available [facility] 4 02:27:23 Migraine without aura, not refracto ry 530391468 Active 2017 Migraine without aura, not intracta ble, without status migraino jana; Note: Date Diagnose d: 05/12/20 18 2:45 PM (G43.009 ) Not Available [facility] 4 02:27:35 Sensorin eural hearing loss of bilatera l ears 910234447 Active 2018 Sensorin eural hearing loss, bilatera l; Note: Date Diagnose d: 9 11:30 AM (H90.3) Not Available [facility] 4 02:27:28 Disorder of nasal sinus 5820417 Active 2020 Other specifie d disorder s of nose and nasal sinuses; Note: Date Diagnose d: 04/01/20 21 11:03 AM (J34.89) Not Available [facility] 4 02:27:46 Disorder of the nose 75081993 Active 2020 Other specifie d disorder s of nose and nasal sinuses; Note: Date Diagnose d: 04/01/20 21 11:03 AM (J34.89) Not Available [facility] 4 02:27:46 Acute sinusiti s 06149781 Completed 202312/16/2023 Other acute sinusiti s; Note: Date Diagnose d: 06/24/2023 11:18 AM (J01.80) Not Available [facility] 4 02:27:48 Sensorin eural hearing loss of bilatera l ears 344302332 Active 2024 ULI dover, JOHN - [facility] 5 11:08:32 Bilatera l tinnitus 71585140911 02 Active 2024 Josr Magana DO [address], [place], [address] , [place] - [facility] 14:29:02 Recurren t acute maxillar y sinusiti s Active 2024 MELYSSA HUANG [address], [place], [address] , [place] [facility] 10:06:34 Abnormal sensatio n 156447451 Active 2024 MELYSSA HUANG [address], [place], [address] , [place] [facility] 13:01:51 Nasal congesti on 51085875 Active 2024 MELYSSA HUANG [address], [place], [address] , [place] [facility] 13:01:57 Posterio r rhinorrh ea 88545350 Active 2024 MELYSSA HUANG [address], [place], [address] , [place] [facility] 13:02:02 Well controll ed type 2 diabetes mellitus 273818767 Active 2024 MELYSSA HUANG [address], [place], [address] , [place] [facility] 13:02:36 Hemotymp rosalba of right tympanic cavity 23923828884 10640 Active 2024 MELYSSA HUANG [address], [place], [address] , [place] [facility] 14:49:03 Problem Notes None recorded. Procedures Surgical History Date Name Laterality Status Provider Name and Address Organization Details Recorded Time 5 CT sinus - Xoran completed MELYSSA HUANG [address] [facility],[place] [address], [place], [address], [facility] 05/05/2025 17:59:17 5 JMSNasal/Sinu s Endoscopy-REYNA OR surgical cavities completed MELYSSA HUANG [address] [facility],[address], [address], [facility] 03/21/2025 12:31:32 5 Comp Audio with Tymps - 20261 & 42271 completed KING COLLINS [address] [facility],[address], [address], [facility] 01/28/2025 13:31:46 Imaging Results None recorded. Procedure Notes None recorded. Medical Equipment None Reported. Allergies Allergen ID Allergen Name Allergen Category Reaction Reaction Severity Criticality Documentation Date Start Date Code Code System Note Provider Name and Address Organization Details Recorded Time 07750 moxifloxa césar medicatio n other Not available Not available 09/27/2023 81984 2 RxNorm React ion: unkno wn, unspe cifie d;; Not Available [facility] 4 00:55:47 Medications Name Sig [...] mg tablet 05/21 completed Medicati on ID: [id number] D uration Value: 30 Reason: () Brand Name: dhaval n Send Method: E-Prescr ibed Sub s Allowed: subs OK Speci al Instruct ion: TOME BENSON TABLETA POR BOCA 2 VECES DIARIO M edicatio nGeneric Name: formi n Not Available Not Available Not Available [...] by mouth 01/28 completed Medicati on ID: [id number] D uration Value: 20 Prescri bed By Name: MURIEL Kramer nd Name: morgan Irene end Method: E-Prescr ibed Sub s Allowed: subs OK Medic ationGen ericName : morgan molina Not Available Not Available Not Available FreeStyle [...] mg tablet 05/21 completed Medicati on ID: [id number] D uration Value: 10 Reason: () Brand [...] inhalatio n 05/21 completed Medicati on ID: [id number] D uration Value: 30 Brand Name: Advair [...] mg capsule 01/28 completed Medicati on ID: [id number] D uration Value: 30 Brand Name: docusate [...] elayed release 01/28 completed Medicati on ID: [id number] D uration Value: 90 Brand Name: omeprazo le Send Method: E-Prescr ibed Sub s Allowed: subs OK Speci al Instruct ion: TOME BENSON CAPSULA TODOS LOS EISENBERG Med icationG enericNa me: omeprazo le Not Available Not Available Not Available budesonid e 0.5 mg/2 mL suspensio n for nebulizat ion 1 vial 01/28 completed Medicati on ID: [id number] D uration Value: 30 Brand Name: budhenrique darling Send Method: E-Prescr ibed Sub s Allowed: [...] mg tablet 01/28 completed Medicati on ID: [id number] D uration Value: 30 Brand Name: hydrochl orothiaz joseph Send Method: E-Prescr ibed Sub s Allowed: subs OK Speci al Instruct ion: TAKE 1 TABLET BY MOUTH DAILY Me dication GenericN zuleika: hydrochl orothiaz joseph Not Available Not Available Not Available mupirocin 2 % topical ointment Apply 1 a small amount three times a day 01/28 completed Medicati on ID: [id number] D uration Value: 14 Prescri bed By Name: MURIEL Rooney nd Name: alyssia matta Send Method: E-Prescr ibed Sub s [...] mg tablet 01/28 completed Medicati on ID: [id number] D uration Value: 30 Brand Name: lisinopr il Send Method: E-Prescr ibed Sub s Allowed: subs OK Speci al Instruct ion: TOME BENSON TABLETA POR V?A ORAL TODOS LOS D? STOP 20 MG DOSE Med icationG enericNa me: lisinopr il Not Available Not Available Not Available fluticaso ne propionat e 50 mcg/actua tion nasal spray,jana pension 2019 active Medicati on ID: [id number] D uration Value: 90 Brand Name: fluticas [...] ous solution 03/14 completed Medicati on ID: [id number] D uration Value: 28 Brand Name: Xolair S end Method: E-Prescr ibed Sub s Allowed: subs OK Medic ationGen ericName : Xolair Not Available Not Available Not Available metformin ER 500 mg tablet,ex tended release 24hr (osmotic) 11/07 completed Medicati on ID: [id number] R fransisco: () Brand Name: metformi n Send Method: E-Prescr ibed Sub s Allowed: subs OK Medic ationGen ericName : metformi n Not Available Not Available Not Available Calcium 600 + D(3) 600 mg-5 mcg (200 unit) tablet 2017 active Medicati on ID: [id number] D uration Value: 30 Brand Name: Calcium [...] inhalatio n 2019 active Medicati on ID: [id number] D uration Value: 30 Brand Name: Breo Ellipta Send Method: E-Prescr ibed Sub s Allowed: subs OK Speci al Instruct ion: INHALE UN SOPLIDO ONCE A DAY Medi cationGe nericNam e: Breo Ellipta Not Available Not Available Not Available Spiriva Respimat 1.25 mcg/actua tion solution for inhalatio n 03/14 completed Medicati on ID: [id number] D uration Value: 30 Brand Name: Spiriva [...] No t Available Vitals Date Recorded Body weight Body mass index (BMI) Body height Provider Name and Address Organization Details Last Updated DateTime 01/28/2025 65722.18 g 34 kg/m2 157.48 cm ULI RICHARDSON [place] [facility] 01/28/2025 13:56:13 Date Recorded Body height Body mass index (BMI) Body weight Provider Name and Address Organization Details Last Updated DateTime 03/21/2025 157.48 cm 34 kg/m2 93862.18 g Mitchell Cardenas [place] [facility] 03/21/2025 09:10:34 Date Recorded Body height Body mass index (BMI) Body weight Systolic And Diastolic Provider Name and Address Organization Details Last Updated DateTime 03/27/2025 157.48 cm 34 kg/m2 98997.18 g 118/78 mm[Hg] Betsy Morales [place] [facility] 03/27/2025 15:12:44 Social History None recorded. Functional Status None recorded. Mental Status None recorded. Family History Nothing Reported. Medical History No medical history recorded. Gynecological HistoryNo gynecological history recorded. Obstetrics History GPAL:G 0 P 0 0 0 0 Past Encounters Encounter ID Performer Location Encounter Start Date Encounter Closed Date Diagnosis/Indication Diagnosis SNOMED-CT Code Diagnosis ICD10 Code Diagnosis IMO Codes Diagnosis Note [id number] Josr Magana DO [facility] [address] [address] 01/28/2025 12:50:38 01/28/2025 14:30:56 Sensorineural hearing loss of bilateral ears 030944612 H90.3 [id number] Audiologic al evaluation results: Right ear: Mild sloping to severe sensorineu ral hearing loss with excellent word recognitio n. Left ear: Mild sloping to severe sensorineu ral hearing loss with excellent word recognitio n. Tympanomet ry: Right Ear:Type A Left Ear:Type C Bilateral tinnitus 12519 66163 102 H93.13 [id number] MELYSSA HUANG [facility] [place] [address] [place] [address] 03/21/2025 08:57:41 03/21/2025 10:11:56 Recurrent acute maxillary sinusitis 9254202360 0687793 J01.01 7908487 Abnormal sensation 10791 1999 R44.8 02900627 Nasal congestion 0082348 0 R09.81 59389 Posterior rhinorrhea 758 98674 R09.82 2557 Seasonal a llergic rhinitis 339569816 J30.2 Well contr olled type 2 diabetes mellitus 974850562 E11.9 [id number] MELYSSA HUANG [facility] [address] [address] 03/27/2025 14:44:40 03/27/2025 15:43:55 Recurrent acute maxillary sinusitis 3810820005 8358840 J01.01 5968219 Abnormal sensation 99076 1999 R44.8 86782520 Nasal congestion 2339662 0 R09.81 22387 Posterior rhinorrhea 758 97886 R09.82 2557 Seasonal a llergic rhinitis 287677759 J30.2 Well contr olled type 2 diabetes mellitus 662492534 E11.9 756461 [id number] MELYSSA HUANG [facility] [address] [address] 04/30/2025 10:16:41 05/05/2025 21:38:14 Recurrent acute maxillary sinusitis 1165286698 4357872 J01.01 3473849 Abnormal sensation 90072 2000 R44.8 93650541 Nasal congestion 8262637 0 R09.81 83823 Posterior rhinorrhea 758 41459 R09.82 2557 Seasonal a llergic rhinitis 783377112 J30.2 Well contr olled type 2 diabetes mellitus 054214038 E11.9 725645 Hemotympan um of right tympanic cavity 6537898759 797436 H74.8X1 [id number] Health Concerns Section Related Observation LastModified by Organization Detai ls LastModified Time None Recorded Concern Status LastModified by Organization Details LastModified Time None Recorded Advance Directives Directive None Recorded Payers Insurance Date Sequence Insurance Name Policy Number Policy Macedo Covered Member ID Macedo Member ID Guarantor Name 04/30/2025 1 [facility] - DOS ON OR AFTER 2022 - DUAL ELIGIBLE - [facility] OPTIONS AND [employer] (MEDICARE REPLACEMENT/AD VANTAGE - HMO) [facility] [id number] [facility] 03/28/2025 1 [facility] - DOS ON OR AFTER 2022 - MEDICARE [place]VANTAGE [place] (MEDICARE REPLACEMENT/AD VANTAGE - PPO) [facility] [id number] [facility] 04/30/2025 1 [facility] - DOS ON OR AFTER 2022 - [facility] OPTIONS AND [employer] (MEDICARE REPLACEMENT/AD VANTAGE - PPO) [facility] [id number] [facility] Notes Date Note Type Note Provider Name and Address Organization Details Recorded Time 01/28/2025 text/html ROS as noted in the HPI Presents today for otologic concerns. No tinnitus currently. rare vertigo. missing conversations with people next to her Previously seen by Dr. Watts in 2019 office. For ear evaluation, prior audiogram was reviewed from 2019 which showed bilateral mild downsloping to moderate sensorineural hearing loss slightly worse in the right. Josr Magana DO [address] [facility],[address] [address], [place], [address], [facility] - [facility] 01/28/2025 14:29:48 03/21/2025 text/html ROS as noted in the [facility] 74-year-old female, with a history of allergic rhinitis s/p revision ethmoidectomy and frontal exploration performed 10/09/[address] Watts, presents with her daughter for evaluation of [...] days ago was 130-140. SAMIR ALMANZA MD [address] [facility],[address], [address], [facility] - [facility] 03/21/2025 16:53:23 03/27/2025 text/html ROS as noted in the [facility] 74-year-old female, with a history of type [...] further discolored nasal drainage. RIP WATTS MD [address] [address], [place], [address], [facility] - [facility] 03/28/2025 08:08:34 04/30/2025 text/html ROS as noted in the [facility] 74-year-old [place]-speaking female, with a history of type II diabetes mellitus and allergic rhinitis s/p revision ethmoidectomy and frontal exploration performed 10/09/[address] Watts, presents for follow-up of recurrent sinusitis and sinus imaging. Patient reports her facial pain remain unchanged despite completing Augmentin and prednisone taper. She states she is currently being treated with another 10-day course of Augmentin as she was recently diagnosed with a right ear infection. Upon further review of her records, patient initially saw her primary provider physician on 04/17 for 2 weeks of right ear pain and fullness, as well as nasal congestion. Ear exam was normal at that time. She was empirically started on 10 days of doxycycline. Patient then went to urgent care on 04/19 where she was noted to have blood behind her right tympanic membrane. Based on their recommendations, she presented to [facility] ED later the same day and was confirmed to have a right hemotympanum with no identifiable triggers. CT imaging was offered, however patient left due to prolonged wait time. She was seen at [facility] ED the next day and underwent a CT scan of the temporal bone which showed partial opacification of the right middle ear and mastoid air cells without osseous or ossicular erosion, consistent with otomastoiditis. Patient was ultimately discharged and switched to Augmentin for treatment of otitis media. She continues to endorse right ear pain and fullness despite almost finishing antibiotic treatment. Minimal relief with Tylenol. GIRISH CRAWFORD MD [address] [place] [address], [address], [facility] - [facility] 05/05/2025 21:38:12 OBGyn Episode No OBEpisode recorded.
--- OUTSIDE RECORDS SUMMARY | 2025-05-08 15:57 | XMS_ITS | Continuity of Care Document ---
Author Organization [place] [facility], [facility] Address [address] [place] [address] Care Team Providers Care Auditor Name Role Phone GEGEKARINA PEREZClementKAUSHAL Primary Care Provider Assessment Encounter Date Assessment Date Assessment LastModified by Organization Details LastModified Time 04/30/2025 04/30/2025 74-year-old Icelandic-speaking female, with a history of type II diabetes mellitus and allergic rhinitis s/p revision ethmoidectomy and frontal exploration performed 10/09/[address] Argueta, presents for follow-up of recurrent sinusitis and [...] questions were answered. Case discussed with Dr. Argueta who agrees with this plan. Not available [...] unlisted lab - C-anca+P- anca w/reflex 2024 025 [place] [facility] (Centralized Electronic Ordering - All Locations), Patient Can Go To The Location Of Their Choice, [id number] 05/07/2025 16:27:57 myelopero xidase, QN, plasma 2024 025 [place] [facility] (Centralized Electronic Ordering - All Locations), Patient Can Go To The Location Of Their Choice, [id number] 05/07/2025 16:27:57 ESR (erythroc yte sedimenta tion rate), blood 2024 025 [place] [facility] (Centralized Electronic Ordering - All Locations), Patient Can Go To The Location Of Their Choice, 05/01/2025 14:52:17 CBC w/ auto diff 2024 [place] [facility]), Patient Can Go To The Location Of Their Choice, 05/07/2025 16:27:57 ige, total, serum 2024 [place] [facility]), Patient Can Go To The Location Of Their Choice, [id number] 05/07/2025 16:27:58 Referral None recorded. Procedures None recorded. Surgeries None recorded. Imaging CT, sinuses, w/o contrast 2024 Not available 05/01/2025 11:05:18 Medication Orders None recorded. Patient TargetsNo targets recorded. Patient InstructionsNo instructions recorded. Reason for Referral None Reported. Results Created Date Observation Date Name Description Value Unit Range Abnormal Flag Note LastModifiedBy Organization Detail LastModifiedTime 05/02/2005/02/2025 CBC WITH DIFFE RENTI AL/PL ATELE T WBC 6.9 x10e3 /uL 3.4-10 .8 normal Not Available [facility] ([facility]) [address] [facility], [place], [address], 05/07/2025 16:27:56 05/02/20 25 05/02/2025 CBC WITH DIFFE RENTI AL/PL ATELE T RBC 3.59 x10e6 /uL 3.77-5 .28 below low normal Not Available [facility] ([facility]) [address] [place], [address], 05/07/2025 16:27:56 05/02/20 25 05/02/2025 CBC WITH DIFFE RENTI AL/PL ATELE T hemoglobin 11.7 g/dL 11.1-1 5.9 normal Not Available [facility] ([facility]) [address] [place], [address], 05/07/2025 16:27:56 05/02/20 25 05/02/2025 CBC WITH DIFFE RENTI AL/PL ATELE T hematocrit 34.6 % 34.0-4 6.6 normal Not Available [facility] ([facility]) [address] [place], [address], 05/07/2025 16:27:56 05/02/20 25 05/02/2025 CBC WITH DIFFE RENTI AL/PL ATELE T MCV 96 fL 79-97 normal Not Available [facility] ([facility]) [address] [place], [address], 05/07/2025 16:27:56 05/02/20 25 05/02/2025 CBC WITH DIFFE RENTI AL/PL ATELE T MCH 32.6 pg 26.6-3 3.0 normal Not Available [facility] ([facility]) [address] [place], [address], 05/07/2025 16:27:56 05/02/20 25 05/02/2025 CBC WITH DIFFE RENTI AL/PL ATELE T MCHC 33.8 g/dL 31.5-3 5.7 normal Not Available [facility] ([facility]) [address] [place], [address], 05/07/2025 16:27:56 05/02/20 25 05/02/2025 CBC WITH DIFFE RENTI AL/PL ATELE T RDW 11.6 % 11.7-1 5.4 below low normal Not Available [facility] ([facility]) [address] [facility], [place], [address], 05/07/2025 16:27:56 05/02/20 25 05/02/2025 CBC WITH DIFFE RENTI AL/PL ATELE T platelets 283 x10e3 /uL 150-45 0 normal Not Available [facility] ([facility]) [address] [facility], [place], [address], 05/07/2025 16:27:56 05/02/20 25 05/02/2025 CBC WITH DIFFE RENTI AL/PL ATELE T neutrophils 53 % not estab. normal Not Available [facility] ([facility]) [address] [facility], [place], [address], 05/07/2025 16:27:56 05/02/20 25 05/02/2025 CBC WITH DIFFE RENTI AL/PL ATELE T lymphs 31 % not estab. normal Not Available [facility] ([facility]) [address] [facility], [place], [address], 05/07/2025 16:27:56 05/02/20 25 05/02/2025 CBC WITH DIFFE RENTI AL/PL ATELE T monocytes 7 % not estab. normal Not Available [facility] ([facility]) [address] [facility], [place], [address], 05/07/2025 16:27:56 05/02/20 25 05/02/2025 CBC WITH DIFFE RENTI AL/PL ATELE T eos 8 % not estab. normal Not Available [facility] ([facility]) [address] [facility], [place], [address], 05/07/2025 16:27:56 05/02/20 25 05/02/2025 CBC WITH DIFFE RENTI AL/PL ATELE T basos 1 % not estab. 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) [address] [place], [address], 05/07/2025 16:27:56 05/02/20 25 05/02/2025 CBC WITH DIFFE RENTI AL/PL ATELE T neutrophils (absolute) 3.7 x10e3 /uL 1.4-7. 0 normal Not Available [facility] ([facility]) [address] [place], [address], 05/07/2025 16:27:56 05/02/20 25 05/02/2025 CBC WITH DIFFE RENTI AL/PL ATELE T lymphs (absolute) 2.1 x10e3 /uL 0.7-3. 1 normal Not Available [facility] ([facility]) [address] [place], [address], 05/07/2025 16:27:56 05/02/20 25 05/02/2025 CBC WITH DIFFE RENTI AL/PL ATELE T monocytes(ab solute) 0.5 x10e3 /uL 0.1-0. 9 normal Not Available [facility] ([facility]) [address] [place], [address], 05/07/2025 16:27:56 05/02/20 25 05/02/2025 CBC WITH DIFFE RENTI AL/PL ATELE T eos (absolute) 0.5 x10e3 /uL 0.0-0. 4 above high normal Not Available [facility] ([facility]) [address] [place], [address], 05/07/2025 16:27:56 05/02/20 25 05/02/2025 CBC WITH DIFFE RENTI AL/PL ATELE T baso (absolute) 0.0 x10e3 /uL 0.0-0. 2 normal Not Available [facility] ([facility]) [address] [facility], [place], [address], 05/07/2025 16:27:56 05/02/20 25 05/02/2025 CBC WITH DIFFE RENTI AL/PL ATELE T immature granulocytes 0 % not estab. Not Available [facility] ([facility]) [address] [facility], [place], [address], 05/07/2025 16:27:56 05/02/20 25 05/02/2025 CBC WITH DIFFE RENTI AL/PL ATELE T immature grans (abs) 0.0 x10e3 /uL 0.0-0. 1 Not Available [facility] ([facility]) [address] [facility], [place], [address], 05/07/2025 16:27:56 05/02/20 25 05/02/2025 CBC WITH DIFFE RENTI AL/PL ATELE T NRBC [employer]ER[employer]IPMENT T[employer]ER Not Available [facility] (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) [address] [facility], [place], [address], 05/07/2025 16:27:56 05/02/20 25 05/07/2025 C-ANC A+P-A NCA W/REF LUZ cytoplasmic (C-anca) <1:20 titer neg:<1 :20 Not Available [facility] ([facility]) [address] [facility], [place], [address], 05/07/2025 16:27:57 05/02/20 25 05/07/2025 C-ANC A+P-A [...] ng of posit elvis sera with both WA-3 and MPO-A NCA enzym e immun oassa ys. As many as 5% serum sampl es are posit elvis only by EIA. Ref. AM J Clin Patho l 1999; 111:5 07-51 3. Not Available [facility] ([facility]) [address] [facility], [place], [address], 05/07/2025 16:27:57 05/02/20 25 05/07/2025 MYELO PEROX IDASE (MPO) myeloperoxid ase (mpo) 305 pmol/ L 0-469 Low CVD Risk <470 Moder ate Risk 470 - 539 High Risk >539 Not Available [facility] ([facility]) [address] [place], [address], 05/07/2025 16:27:57 05/02/20 25 05/03/2025 IMMUN OGLOB ULIN E, TOTAL immunoglobul in E, total 79 IU/mL 6-495 Not Available [facility] ([facility]) [address] [place], [address], 05/07/2025 16:27:58 Result Notes None recorded. Problems Name Problem SNOMED Code Status Onset Date Resolution Date Notes Provider Name and Address Organization Details Recorded Time Nasal polyp Active 2014 Nasal polyposi s; Note: Date Diagnose d: 5 2:10 PM (471.9) Not Available [facility] 4 02:27:30 Chronic sinusiti s 11395584 Active 2015 Chronic sinusiti s; Note: Date Diagnose d: 5 2:10 PM (473.9) ; Start Date : 05/31/19 15 Sinus itis (chronic ) involvin g more than one sinus but not pansinus itis; Note: Date Diagnose d: 6 11:14 AM (J32.8) Not Available [facility] 4 02:27:40 Seasonal allergic rhinitis 134243082 Active 2015 Other seasonal allergic rhinitis ; Note: Date Diagnose d: 6 11:32 AM (J30.2) Not Available [facility] 4 02:27:48 Exacerba tion of moderate persiste nt asthma 157393120 Active 2016 Moderate persiste nt asthma with (acute) exacerba tion; Note: Date Diagnose d: 7 2:13 PM (J45.41) Not Available [facility] 4 02:27:54 Headache 48404012 Active 2017 Headache ; Note: Date Diagnose d: 8 2:18 PM (R51) Not Available [facility] 4 02:27:54 Dizzines s and giddines s 738289244 Active 2017 Dizzines s and giddines s; Note: Date Diagnose d: 8 2:18 PM (R42) Not Available [facility] 4 02:27:23 Migraine without aura, not refracto ry 867446027 Active 2017 Migraine without aura, not intracta ble, without status migraino jana; Note: Date Diagnose d: 05/12/20 18 2:45 PM (G43.009 ) Not Available [facility] 4 02:27:35 Sensorin eural hearing loss of bilatera l ears 458152286 Active 2018 Sensorin eural hearing loss, bilatera l; Note: Date Diagnose d: 9 11:30 AM (H90.3) Not Available [facility] 4 02:27:28 Disorder of nasal sinus 0507794 Active 2020 Other specifie d disorder s of nose and nasal sinuses; Note: Date Diagnose d: 04/01/20 21 11:03 AM (J34.89) Not Available [facility] 4 02:27:46 Disorder of the nose 05964353 Active 2020 Other specifie d disorder s of nose and nasal sinuses; Note: Date Diagnose d: 04/01/20 11:03 AM (J34.89) Not Available [facility] 4 02:27:46 Acute sinusiti s 71525901 Completed 202312/16/2023 Other acute sinusiti s; Note: Date Diagnose d: 06/24/2023 11:18 AM (J01.80) Not Available [facility] 4 02:27:48 Sensorin eural hearing loss of bilatera l ears 926123228 Active 2024 ULI dover [place] - [facility] 5 11:08:32 Bilatera l tinnitus 87525092473 02 Active 2024 Josr Magana DO [address] [facility],[address], [place], [address] , [facility] - [facility] 5 14:29:02 Recurren t acute maxillar y sinusiti s Active 2024 MELYSSA HUANG [address] [facility] [address], [place], [address] , [facility] - [facility] 5 10:06:34 Abnormal sensatio n 268535845 Active 2024 MELYSSA HUANG [address] [facility] [address], [place], [place], [address] , [facility] - [facility] 5 13:01:51 Nasal congesti on 46098076 Active 2024 MELYSSA HUANG [address] [facility], [place], [address] , [facility] - [facility] 5 13:01:57 Posterio r rhinorrh ea 05099676 Active 2024 MELYSSA HUANG [address] [facility], [place], [address] , [place] - [facility] 5 13:02:02 Well controll ed type 2 diabetes mellitus 838515197 Active 2024 MELYSSA HUANG [address] [facility],[place] [address], [place], [address] , [place] - [facility] 5 13:02:36 Hemotymp rosalba of right tympanic cavity 52323141093 01518 Active 2024 MELYSSA HUANG [address] [facility],[place] [address], [place], [address] , [place] - [facility] 5 14:49:03 Problem Notes None recorded. Procedures Surgical History Date Name Laterality Status Provider Name and Address Organization Details Recorded Time 5 CT sinus - Xoran completed MELYSSA HUANG [address] [facility],[place] [address], [place], [address], [place] [facility] 05/05/2025 17:59:17 5 JMSNasal/Sinu s Endoscopy-[facility] OR surgical cavities completed MELYSSA HUANG [address] [facility],[place] [address], [place], [address], [place] [facility] 03/21/2025 12:31:32 5 Comp Audio with Tymps - 01217 & 82452 completed KING COLLINS [address] [facility],[place] [address], [place], [address], [place] [facility] 01/28/2025 13:31:46 Imaging Results None recorded. Procedure Notes None recorded. Medical Equipment None Reported. Allergies Allergen ID Allergen Name Allergen Category Reaction Reaction Severity Criticality Documentation Date Start Date Code Code System Note Provider Name and Address Organization Details Recorded Time 69237 moxifloxa césar medicatio n other Not available Not available 09/27/2023 64340 2 RxNorm React ion: unkno wn, unspe cifie d;; Not Available [facility] 4 00:55:47 Medications Name Sig Start Date [...] mg tablet 05/21 completed Medicati on ID: [id number] D uration Value: 30 Reason: () Brand Name: dhaval matta Send Method: E-Prescr ibed Sub s Allowed: subs OK Speci al Instruct ion: TOME BENSON TABLETA POR BOCA 2 VECES DIARIO M edicatio nGeneric Name: dhvaal n Not Available Not Available Not Available [...] by mouth 01/28 completed Medicati on ID: [id number] D uration Value: 20 Prescri bed By [...] mg tablet 05/21 completed Medicati on ID: [id number] D uration Value: 10 Reason: () Brand [...] inhalatio n 05/21 completed Medicati on ID: [id number] D uration Value: 30 Brand Name: Advair [...] mg capsule 01/28 completed Medicati on ID: [id number] D uration Value: 30 Brand Name: docusate [...] elayed release 01/28 completed Medicati on ID: [id number] D uration Value: 90 Brand Name: omeprazo le Send Method: E-Prescr ibed Sub s Allowed: subs OK Speci al Instruct ion: TOME BENSON CAPSULA TODOS LOS EISENBERG Med icationG enericNa me: omeprazo le Not Available Not Available Not Available budesonid e 0.5 mg/2 mL suspensio n for nebulizat ion 1 vial 01/28 completed Medicati on ID: [id number] D uration Value: 30 Brand Name: budesoni [...] mg tablet 01/28 completed Medicati on ID: [id number] D uration Value: 30 Brand Name: hydrochl orothiaz joseph Send Method: E-Prescr ibed Sub s Allowed: subs OK Speci al Instruct ion: TAKE 1 TABLET BY MOUTH DAILY Me dication GenericN zuleika: hydrochl orothiaz joseph Not Available Not Available Not Available mupirocin 2 % topical ointment Apply 1 a small amount three times a day 01/28 completed Medicati on ID: [id number] D uration Value: 14 Prescri bed By [...] mg tablet 01/28 completed Medicati on ID: [id number] D uration Value: 30 Brand Name: lisinopr il Send Method: E-Prescr ibed Sub s Allowed: subs OK Speci al Instruct ion: TOME BENSON TABLETA POR V?A ORAL TODOS LOS D? STOP 20 MG DOSE Med icationG enericNa me: lisinopr il Not Available Not Available Not Available fluticaso ne propionat e 50 mcg/actua tion nasal spray,jana pension 2019 active Medicati on ID: [id number] D uration Value: 90 Brand Name: fluticas [...] ous solution 03/14 completed Medicati on ID: [id number] D uration Value: 28 Brand Name: Xolair S end Method: E-Prescr ibed Sub s Allowed: subs OK Medic ationGen ericName : Xolair Not Available Not Available Not Available metformin ER 500 mg tablet,ex tended release 24hr (osmotic) 11/07 completed Medicati on ID: [id number] R fransisco: () Brand Name: metformi n Send Method: E-Prescr ibed Sub s Allowed: subs OK Medic ationGen ericName : metformi n Not Available Not Available Not Available Calcium 600 + D(3) 600 mg-5 mcg (200 unit) tablet 2017 active Medicati on ID: [id number] D uration Value: 30 Brand Name: Calcium [...] inhalatio n 2019 active Medicati on ID: [id number] D uration Value: 30 Brand Name: Breo Ellipta Send Method: E-Prescr ibed Sub s Allowed: subs OK Speci al Instruct ion: INHALE UN SOPLIDO ONCE A DAY Medi cationGe nericNam e: Breo Ellipta Not Available Not Available Not Available Spiriva Respimat 1.25 mcg/actua tion solution for inhalatio n 03/14 completed Medicati on ID: 675401 D uration Value: 30 Brand Name: Spiriva [...] Available Not Available No t Available Vitals None Recorded Social History None recorded. Functional Status None recorded. Mental Status None recorded. Family History Nothing Reported. Medical History No medical history recorded. Gynecological HistoryNo gynecological history recorded. Obstetrics History GPAL:G 0 P 0 0 0 0 Past Encounters Encounter ID Performer Location Encounter Start Date Encounter Closed Date Diagnosis/Indication Diagnosis SNOMED-CT Code Diagnosis ICD10 Code Diagnosis IMO Codes Diagnosis Note [id number] MELYSSA HUANG [facility] of [address] [address] 04/30/2025 10:16:41 05/05/2025 21:38:14 Recurrent acute maxillary sinusitis 6023667127 4993195 J01.01 9091218 Abnormal sensation 27780 2000 R44.8 56490692 Nasal congestion 7124337 0 R09.81 27726 Posterior rhinorrhea 758 48499 R09.82 2557 Seasonal a llergic rhinitis 852754817 J30.2 Well contr olled type 2 diabetes mellitus 210971324 E11.9 737791 Hemotympan um of right tympanic cavity 5338110366 265906 H74.8X1 50064848 Health Concerns Section Related Observation LastModified by Organization Detai ls LastModified Time None Recorded Concern Status LastModified by Organization Details LastModified Time None Recorded Payers Encounter Date Sequence Insurance Name Policy Number Policy Macedo Covered Member ID Macedo Member ID Guarantor Name 04/30/2025 1 [facility] - DOS ON OR AFTER 2022 - DUAL ELIGIBLE - CUSTODIAL OPTIONS AND ONE CARE (MEDICARE REPLACEMENT/ADV ANTAGE - HMO) Sharri Pruett [id number] Sharri Pruett Notes Date Note Type Note Provider Name and Address Organization Details Recorded Time 04/30/2025 text/html ROS as noted in the HPI 74-year-old Icelandic-speaking female, with a history of type II diabetes mellitus and allergic rhinitis s/p revision ethmoidectomy and frontal exploration performed 10/09/[address] Argueta, presents for follow-up of recurrent sinusitis and [...] Based on their recommendations, she presented to [facility] ED later the same day and was confirmed to have a right hemotympanum with no identifiable triggers. CT imaging was offered, however patient left due to prolonged wait time. She was seen at [facility] ED the next day and underwent a [...] Minimal relief with Tylenol. GIRISH CRAWFORD MD [address] [place] [address], [place], [address], [place] [facility] 05/05/2025 21:38:12 OBGyn Episode No OBEpisode recorded.
--- OUTSIDE RECORDS SUMMARY | 2025-05-08 15:57 | XMS_ITS | Clinical Summary ---
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 023 Active nebulizer accessories [facility] [place] RESPIRATORY THERAPY SUPPLIES (NEBULIZER/TUB ING/MOUTHPIECE ) KIT: 1 Device by Does not apply route 4 times daily as needed (wheezing, asthma exacerbation). 021 Active fluticasone-umecli dinium-vilanterol (Trelegy Ellipta) 200-62.5-25 mcg inhaler Inhale 1 puff (200 mcg total) by mouth 1 (one) time each day. Rinse mouth with water after use to reduce aftertaste and incidence of candidiasis. Do not swallow. 1 each 024 Active isosorbide mononitrate (IMDUR) 30 mg 24 hr tablet Take 1 tablet (30 mg total) by mouth 1 (one) time each day. Do not crush or chew. 90 each 1 Active loratadine (CLARITIN) 10 mg tabletIndications: Non-seasonal allergic rhinitis due to pollen TAKE 1 TABLET BY MOUTH EVERY DAY 90 tablet 1 025 Active calcium carbonate-vit D3-min 600 mg-10 mcg (400 unit) tablet Take 1 tablet by mouth 2 (two) times a day. 180 tablet 1 025 Active montelukast (SINGULAIR) 10 mg tabletIndications: Non-seasonal allergic rhinitis due to pollen Take 1 tablet (10 mg total) by mouth at bedtime. at bedtime. 90 tablet 3 025 2025 Active calcium carbonate-vitamin D 600 mg-10 mcg (400 unit) per tablet Take 2 tablets by mouth 1 (one) time each day. Active dupilumab (DUPIXENT) 300 mg/2 mL penIndications:Sev ere persistent asthma, unspecified whether complicated (CMS/[facility] V28) Inject 2 mL (300 mg total) under the skin every 14 (fourteen) days. Active aspirin 81 mg EC tablet Take 1 tablet (81 mg total) by mouth 1 (one) time each day. 90 each 1 Active FreeStyle Lancets 28 gauge lancets Use as instructed to check blood sugar twice daily 200 each 1 Active blood sugar diagnostic (FreeStyle Lite Strips) test strip Use as instructed to check blood sugar twice daily 200 each 1 025 Active acetaminophen (Tylenol 8 Hour) 650 mg 8 hr tablet Take 1-2 tablets (650-1,300 mg total) by mouth every 12 (twelve) hours if needed for mild pain. Do not crush, chew, or split. 120 tablet 2 Active lidocaine (LIDODERM) 5 % patchIndications:F ibromyalgia,Degene ration of intervertebral disc of lumbar region with discogenic back pain and lower extremity pain Apply 1 patch topically 1 (one) time each day. Apply to painful area 12 hours per day, remove for 12 hours. 30 each 5 025 2025 Active meclizine (ANTIVERT) 25 mg tabletIndications: Benign paroxysmal positional vertigo due to bilateral vestibular disorder Take 1 tablet (25 mg total) by mouth 3 (three) times a day if needed for dizziness. 90 tablet 5 025 Active busPIRone (BUSPAR) 5 mg tabletIndications: Anxiety Take 1 tablet (5 mg total) by mouth 2 (two) times a day. 180 tablet 1 025 Active metFORMIN (GLUCOPHAGE) 850 mg tabletIndications: Type 2 diabetes mellitus with microalbuminuria (CMS/HCC V24, CMS/HCC V28) Take 1 tablet (850 mg total) by mouth 1 (one) time each day with breakfast. 90 tablet 1 025 Active atorvastatin (LIPITOR) 80 mg tabletIndications: Dyslipidemia Take 1 tablet (80 mg total) by mouth at bedtime. 90 tablet 1 025 Active pregabalin (LYRICA) 50 mg capsuleIndications :Degeneration of intervertebral disc of lumbar region with discogenic back pain and lower extremity pain,Fibromyalgia Take 1 capsule (50 mg total) by mouth 2 (two) times a day. Max Daily Amount: 100 mg 180 each 1 025 2025 Active mometasone (NASONEX) 50 mcg/actuation nasal sprayIndications:N on-seasonal allergic rhinitis due to pollen,Subacute maxillary sinusitis Administer 2 sprays into each nostril 2 (two) times a day. 17 g 5 025 2025 Active azelastine (ASTELIN) 137 mcg (0.1 %) nasal sprayIndications:N on-seasonal allergic rhinitis due to pollen,Subacute maxillary sinusitis Administer 1 spray into each nostril 2 (two) times a day. Use in each nostril as directed 30 mL 1 025 2025 Active losartan-hydroCHLO ROthiazide (Hyzaar) 100-12.5 mg per tabletIndications: Primary hypertension Take 1 tablet by mouth 1 (one) time each day. 90 each 025 2025 Active blood-glucose meter kitIndications:Typ e 2 diabetes mellitus with microalbuminuria (CMS/HCC V24, CMS/HCC V28) Use to monitor FSG once a day 1 each 025 2025 Active blood-glucose meter kit Use to check blood sugar once daily 1 each Active albuterol 2.5 mg /3 mL (0.083 %) nebulizer solutionIndication s:YOEL and COPD overlap syndrome ([facility] V24, [facility] V28),Severe persistent asthma without complication ([facility] V28) INHALE 3 ML BY NEBULIZATION EVERY 6 HOURS IF NEEDED FOR WHEEZING 300 mL 2 025 2025 Active albuterol HFA (PROAIR HFA ; PROVENTIL HFA ; VENTOLIN HFA) 90 mcg/actuation inhaler INHALE 2 PUFFS BY MOUTH EVERY 4 (FOUR) HOURS IF NEEDED FOR WHEEZING. 18 each 2 025 2025 Active blood-glucose meter kit Use to monitor blood sugars twice daily 022 2024 Discontinued albuterol 2.5 mg /3 mL (0.083 %) nebulizer solutionIndication s:YOEL and COPD overlap syndrome ([facility] V24, [facility] V28),Severe persistent asthma without complication ([facility] V28) INHALE 3 ML BY NEBULIZATION EVERY 6 HOURS IF NEEDED FOR WHEEZING 300 mL 2 025 2024 Discontinued albuterol HFA (PROAIR HFA ; PROVENTIL HFA ; VENTOLIN HFA) 90 mcg/actuation inhaler INHALE 2 PUFFS BY MOUTH EVERY 4 (FOUR) HOURS IF NEEDED FOR WHEEZING. 18 each 2 025 2024 Discontinued hydroCHLOROthiazid e 12.5 mg tabletIndications: Primary hypertension Take 1 tablet (12.5 mg total) by mouth 1 (one) time each day. 90 tablet 1 025 2024 Discontinued(D uplicate order) losartan (COZAAR) 50 mg tabletIndications: Primary hypertension Take 1 tablet (50 mg total) by mouth 1 (one) time each day. 90 tablet 1 025 2024 Discontinued(D uplicate order) fluticasone propionate (FLONASE) 50 mcg/actuation nasal sprayIndications:N on-seasonal allergic rhinitis due to pollen Administer 1 spray into each nostril 2 (two) times a day. Shake gently. Before first use, prime pump. After use, clean tip and replace cap. 16 g 1 025 2024 Discontinued(D uplicate order) doxycycline (VIBRAMYCIN) 100 mg capsuleIndications :Subacute maxillary sinusitis Take 1 capsule (100 mg total) by mouth 2 (two) times a day for 10 days. Take with at least 8 ounces (large glass) of water, do not lie down for 30 minutes after. Administer 2 hours before or after multivitamins, antacids, or other products containing polyvalent cations (i.e., calcium, iron, magnesium, selenium, zinc). 20 each 025 2024 Discontinued(T herapy completed) Active Problems Problem Noted Date Diagnosed Date Generalized anxiety disorder 03/25/2025 Assessment & Plan (03/25/2025 3:17 PM EST): Continue BuSpar 5 mg twice daily Sensorineural hearing loss (SNHL) of both ears 1 05/25/2024 Assessment & Plan (03/25/2025 3:17 PM EST): Advised to have her family help her call with the information she was provided from audiology to get hearing aids She has recurrent sinus infections . Went to urgent care on 03/18/25. Was prescribed augmentin BID for 10 days. She notes mild improvement in her symptoms but she still has left sided ear + face pain and pressure She is on Day 7 of augmentin. Does not think it has been effective She has been seeing ENT. Had appt last week,. Was prescribed prednisone Has a follow-up appt with ENT on 03/28/25 Was offered switch from Augmentin to doxycycline which she declines. She will prefer to discuss this with ENT first Due for flu vaccine which is deferred until she is done with antibiotics Nasal polyposis 12/10/2024 Epidermoid cyst 12/10/2024 Hemorrhoids 12/10/2024 Overview (12/10/2024): routine screening colonscopy. S/P cholecystectomy 12/10/2024 Sebaceous cyst of breast 12/10/2024 Coronary artery disease invo lving [place] coronary artery of [place] heart 09/19/2024 Assessment & Plan (11/23/2024 1:06 PM EDT): Patient under went cardiac testing with a nuclear stress test as she was continuing to report chest discomfort with more than usual activity. Her nuclear stress test showed evidence of a small in size and mild in intensity reversible perfusion defect in the basal anterior wall suggestive of ischemia. She did not improve on medical therapy therefore she was sent for a coronary angiogram for further evaluation. Patient was found to have no obstructive coronary artery disease. She continues to report atypical chest discomfort. She was seen in the emergency room yesterday and given Tylenol and Flexeril with resolution of her symptoms. At this point her cardiac evaluation is complete and her chest discomfort symptoms are most likely noncardiac in nature therefore we would advise that she continue to follow with her primary care provider in the event that she continues to have chest discomfort so that she may continue to be monitored for noncardiac causes of chest discomfort. In the meantime we will continue to manage her risk factors and recommend that she continue with aspirin and statin as prescribed. I have reviewed with the patient the importance of a heart healthy lifestyle which includes eating a low-fat low-salt diet, getting regular exercise, maintaining a healthy weight, not smoking, and following up with routine medical care. Assessment & Plan (09/19/2024 8:01 PM EDT): Patient continues to report chest discomfort with more than usual activity. She has some shortness of breath which she attributes to asthma and improves with inhaler. She had a nuclear stress test recently as outlined above and despite medical therapies she continues to have occasional chest discomfort. For this reason, we will pursue further evaluation with a coronary angiogram to evaluate her coronary anatomy with possible PCI if indicated. Risks and benefits of coronary angiogram discussed with patient including the increased risk for bleeding and the less than 0.1% risk for MA, stroke or . The patient understands and wishes to proceed with coronary angiogram. All questions answered. We will update labs today and arrange for angiogram at [facility]. Atypical chest pain 08/10/2024 Assessment & Plan (10/19/2024 1:52 PM EDT): Her cardiac cath was negative at [facility] which is reassuring. She does state that the Imdur was helping with some of the chest discomfort so she would like to continue this She will follow-up with cardiology as scheduled and continue her aspirin/statin Assessment & Plan (08/10/2024 8:52 AM EDT): Patient continues to report shortness of breath and chest tightness with more than usual activity. She does have asthma and is currently on prednisone and uses inhalers and nebulizers at home. We reviewed the results of her nuclear stress test which showed mild ischemic abnormality. We discussed options at this time I will start her on medical therapy and see if her symptoms improve. I believe that her asthma may be a contributing factor given that she is currently having an exacerbation of this condition. Since she is actively wheezing today I will not start her on metoprolol. We will start aspirin, increase her simvastatin and add isosorbide. She will let me know if she develops any worsening symptoms or if her symptoms do not improve. I will see her back in 6 weeks for close follow-up. Severe persistent asthma 08/06/2024 Assessment & Plan (03/25/2025 3:17 PM EST): Continue pulmonology follow-up. Continue trelegy daily, albuterol PRN, montelukast 10 mg nightly and Dupixent every 2 weeks Assessment & Plan (10/19/2024 1:52 PM EDT): continue trelegy daily, albuterol PRN, montelukast 10 mg nightly, pulmonology follow-up. Pending Dupixent CKD stage 3a, GFR 45-59 ml/min 07/26/2024 Assessment & Plan (03/25/2025 3:17 PM EST): Recent kidney function is stable. Last GFR was 64 Assessment & Plan (10/19/2024 1:52 PM EDT): Stable. She will complete pending labs next week Assessment & Plan (07/26/2024 8:09 PM EDT): Stable. Last GFR was 53 Stress incontinence of urine 02/17/2023 Assessment & Plan (07/26/2024 8:09 PM EDT): Continue with incontinence liners. 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 Stallings at [facility] Assessment & Plan (03/28/2024 8:01 PM EST): Continue GI follow up Allergic conjunctivitis, bilateral 09/08/2020 Assessment & Plan (03/28/2024 8:01 PM EST): START Orders: ketotifen fumarate (Zaditor) 0.035 % ophthalmic solution; Administer 1 drop into both eyes 2 (two) times a day. Internal derangement of ankle 07/24/2020 YOEL and COPD overlap syndrome 11/07/2018 Overview (02/17/2024): Last Assessment & Plan: Noncompliant report in this visit Previous visit compliance report was 81% with CPAP for more than 4 hours For the next visit advised to bring the compliance. Assessment & Plan (03/25/2025 3:17 PM EST): Continue CPAP nightly Assessment & Plan (10/19/2024 1:52 PM EDT): Continue CPAP nightly. Assessment & Plan (07/26/2024 8:09 PM EDT): Continue CPAP nightly Orders: albuterol 2.5 mg /3 mL (0.083 %) nebulizer solution; Take 3 mL (2.5 mg total) by nebulization every 6 (six) hours if needed for wheezing. Assessment & Plan (03/28/2024 8:01 PM EST): Continue CPAP nightly. Primary osteoarthritis of both knees 06/29/2018 Type 2 diabetes mellitus with microalbuminuria 1 06/13/2017 Overview (02/17/2024): Last Assessment & Plan: Continue Metformin 850 mg 1 tablet twice a day. Most recent hemoglobin once he was under good control. Discussed in detail diet to help control his blood sugars. Encouraged a low-fat, lean protein, high-fiber, low carbohydrate diet. Discussed avoiding sweets and junk food. Decrease the amount of bread, rice, pasta and potatoes. Regular exercise also encouraged to help with weight loss and provide cardiovascular benefit. Follow-up in 3 months with PCP. Assessment & Plan (04/26/2025 2:48 PM EST): Stable. Continue metformin 850mg daily. States her glucometer is broken and she needs a new one. this is ordered Orders: blood-glucose meter kit; Use to monitor FSG once a day Assessment & Plan (03/25/2025 3:17 PM EST): Well-controlled. Continue metformin Orders: metFORMIN (GLUCOPHAGE) 850 mg tablet; Take 1 tablet (850 mg total) by mouth 1 (one) time each day with breakfast. Hemoglobin A1c; Future Assessment & Plan (10/19/2024 1:52 PM EDT): Stable. Continue metformin Orders: metFORMIN (GLUCOPHAGE) 850 mg tablet; Take 1 tablet (850 mg total) by mouth 1 (one) time each day with breakfast. Assessment & Plan (07/26/2024 8:09 PM EDT): Well controlled Continue metformin She has microalbuminuria,- continue losartan Orders: metFORMIN (GLUCOPHAGE) 850 mg tablet; Take 1 tablet (850 mg total) by mouth 1 (one) time each day with breakfast. Hm Diabetes Foot Exam Hemoglobin A1c; Future Comprehensive metabolic panel; Future Assessment & Plan (03/28/2024 8:01 PM EST): Last A1c was 6 in May. Due for labs which are ordered Continue metformin 850mg daily. Overdue for DM eye exam and is referred for this Orders: Hemoglobin A1c; Future Comprehensive metabolic panel; Future Microalbumin creatinine urine ratio; Future metFORMIN (GLUCOPHAGE) 850 mg tablet; Take 1 tablet (850 mg total) by mouth 1 (one) time each day with breakfast. 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 Due for DEXA scan which is ordered Orders: BD Bone Density DXA Axial Skeleton; Future Assessment & Plan (07/26/2024 8:09 PM EDT): Continue daily calcium/vitamin D supplement Last DXA scan was in Mar 2023. Will update in March Assessment & Plan (03/28/2024 8:01 PM EST): Continue ca/vitamin D Osteoarthritis 04/13/2018 Multiple pulmonary nodules 04/13/2018 Hypertension 04/13/2018 Assessment & Plan (04/26/2025 2:48 PM EST): Poorly controlled Start losartan-HCTZ 100-12.5 mg daily Stop losartan 50mg and HCTZ 12.5mg F/u in 1 month for BP check with BP log Orders: losartan-hydroCHLOROthiazide (Hyzaar) 100-12.5 mg per tablet; Take 1 tablet by mouth 1 (one) time each day. Assessment & Plan (04/17/2025 3:52 PM EST): Poorly controlled today but historically well controlled For now she is advised to continue losartan 50mg daily and HCTZ 12.5mg daily Follow up next week as scheduled She is to check BP at home daily and bring log and BP monitor to next visit Assessment & Plan (03/25/2025 3:17 PM EST): Well-controlled. Continue current meds Orders: hydroCHLOROthiazide 12.5 mg tablet; Take 1 tablet (12.5 mg total) by mouth 1 (one) time each day. losartan (COZAAR) 50 mg tablet; Take 1 tablet (50 mg total) by mouth 1 (one) time each day. Comprehensive metabolic panel; Future Assessment & Plan (11/23/2024 1:06 PM EDT): Patient is well sugars under excellent control with a reading today 132/80. No changes to her medical therapies at this time. Assessment & Plan (10/19/2024 1:52 PM EDT): Stable. Continue current meds Orders: hydroCHLOROthiazide 12.5 mg tablet; Take 1 tablet (12.5 mg total) by mouth 1 (one) time each day. losartan (COZAAR) 50 mg tablet; Take 1 tablet (50 mg total) by mouth 1 (one) time each day. Assessment & Plan (09/19/2024 8:01 PM EDT): Blood pressure appears well-controlled with a reading today of 104/60 She will continue with her present medical therapies. Assessment & Plan (08/10/2024 8:52 AM EDT): Blood pressure appears well-controlled with a reading today of 130/72. She will continue with her present medical therapies and I will add isosorbide as outlined in detailed above. Assessment & Plan (07/26/2024 8:09 PM EDT): Well controlled. Continue losartan 50mg daily and HCTZ 12.5mg daily. Assessment & Plan (03/28/2024 8:01 PM EST): BP is well controlled Orders: losartan (COZAAR) 25 mg tablet; Take 1 tablet (25 mg total) by mouth 1 (one) time each day. Take 1 Tablet by mouth daily. - Oral hydroCHLOROthiazide 12.5 mg tablet; Take 1 tablet (12.5 mg total) by mouth 1 (one) time each day. DDD (degenerative disc disease), lumbar 04/13/20 Assessment & Plan (03/25/2025 3:17 PM EST): Will trial pregabalin 50 mg twice daily She will continue lidocaine patches as needed Orders: pregabalin (LYRICA) 50 mg capsule; Take 1 capsule (50 mg total) by mouth 2 (two) times a day. Max Daily Amount: 100 mg Assessment & Plan (10/19/2024 1:52 PM EDT): Continue with patches Orders: lidocaine (LIDODERM) 5 % patch; Apply 1 patch topically 1 (one) time each day. Apply to painful area 12 hours per day, remove for 12 hours. Assessment & Plan (07/26/2024 8:09 PM EDT): Continue lidocaine patch as needed Assessment & Plan (03/28/2024 8:01 PM EST): Orders: lidocaine (LIDODERM) 5 % patch; Apply 1 patch topically 1 (one) time each day. Apply to painful area 12 hours per day, remove for 12 hours. Fibromyalgia 04/13/2018 Assessment & Plan (03/25/2025 3:17 PM EST): Start pregabalin 50 mg twice daily. Counseled on the medication side effects Follow-up in 1 month Orders: pregabalin (LYRICA) 50 mg capsule; Take 1 capsule (50 mg total) by mouth 2 (two) times a day. Max Daily Amount: 100 mg Assessment & Plan (10/19/2024 1:52 PM EDT): Continue with lidocaine patches Orders: lidocaine (LIDODERM) 5 % patch; Apply 1 patch topically 1 (one) time each day. Apply to painful area 12 hours per day, remove for 12 hours. Assessment & Plan (07/26/2024 8:09 PM EDT): Continue lidocaine patch as needed Assessment & Plan (03/28/2024 8:01 PM EST): Orders: lidocaine (LIDODERM) 5 % patch; Apply 1 patch topically 1 (one) time each day. Apply to painful area 12 hours per day, remove for 12 hours. Carpal tunnel syndrome 04/13/2018 Allergic rhinitis due to pollen 03/08/2018 Assessment & Plan (04/17/2025 3:52 PM EST): Start nasonex BID and azelastin BID Advised to use both medications consistently STOP afrin. Orders: mometasone (NASONEX) 50 mcg/actuation nasal spray; Administer 2 sprays into each nostril 2 (two) times a day. azelastine (ASTELIN) 137 mcg (0.1 %) nasal spray; Administer 1 spray into each nostril 2 (two) times a day. Use in each nostril as directed Assessment & Plan (03/25/2025 3:17 PM EST): Continue Flonase, montelukast and Claritin Orders: fluticasone propionate (FLONASE) 50 mcg/actuation nasal spray; Administer 1 spray into each nostril 2 (two) times a day. Shake gently. Before first use, prime pump. After use, clean tip and replace cap. Assessment & Plan (07/26/2024 8:09 PM EDT): continue flonase daily, Montelukast and Claritin. Assessment & Plan (03/28/2024 8:01 PM EST): Orders: loratadine (CLARITIN) 10 mg tablet; Take 1 tablet (10 mg total) by mouth 1 (one) time each day. montelukast (SINGULAIR) 10 mg tablet; Take 1 tablet (10 mg total) by mouth at bedtime. at bedtime. Tubular adenoma of colon 02/13/2018 Overview (02/17/2024): 06/2016. Repeat 5 years Assessment & Plan (07/26/2024 8:09 PM EDT): Per pt she had a colonoscopy in 2022(at [facility]) and was told she is on a 5 yr plan. She is not comfortable with this given her history of multiple polyps. She is referred to Dr. Stallings for follow up Will obtain last colonoscopy records from [facility] Orders: Ambulatory referral to Gastroenterology; Future Hyperlipidemia 02/13/2018 Assessment & Plan (04/26/2025 2:48 PM EST): LDL is at goal of <70. Continue atorvastatin 80 mg nightly Assessment & Plan (11/23/2024 1:06 PM EDT): Patient's last LDL cholesterol was 85. This is reasonable in the setting of nonobstructive coronary artery disease however I would recommend that she will continue with her cholesterol medications as prescribed. Assessment & Plan (10/19/2024 1:52 PM EDT): she will start atorvastatin 80 mg Assessment & Plan (09/19/2024 8:01 PM EDT): Simvastatin increased last visit, however patient had difficulties with pharmacy. Prescription resent today. Goal LDL is less than 70. Assessment & Plan (08/10/2024 8:52 AM EDT): Patient has history of hyperlipidemia with an LDL cholesterol of 85. Given that she just had an abnormal nuclear stress test we will presume that she has some degree of coronary artery disease and established a goal of LDL cholesterol of less than 70. I will increase her simvastatin today to 20 mg once a day. Assessment & Plan (07/26/2024 8:09 PM EDT): Continue simvastatin. LDL is not at goal of <70 (recent test was 85) For now, we will try to get to goal with lifestyle management Orders: simvastatin (ZOCOR) 10 mg tablet; Take 1 tablet (10 mg total) by mouth at bedtime. Assessment & Plan (03/28/2024 8:01 PM EST): Last LDL at goal Orders: simvastatin (ZOCOR) 20 mg tablet; Take 1 tablet (20 mg total) by mouth at bedtime. Chronic right-sided low back pain without sciati ca 02/13/2018 BPPV (benign paroxysmal positional vertigo) 05/2017 Overview (02/17/2024): 11/03/17 referral to Vestibular Rehab Assessment & Plan (10/19/2024 1:52 PM EDT): Requesting refills of meclizine which were provided Orders: meclizine (ANTIVERT) 25 mg tablet; Take 1 tablet (25 mg total) by mouth 3 (three) times a day if needed for dizziness or nausea. B12 deficiency 02/13/2018 Assessment & Plan (03/25/2025 3:17 PM EST): Continue B12 supplement weekly Orders: Vitamin B12; Future Assessment & Plan (07/26/2024 8:09 PM EDT): Continue vitamin B12 weekly Orders: Vitamin B12; Future Assessment & Plan (03/28/2024 8:01 PM EST): Continue B12 supplement Resolved Problems Problem Noted Date Diagnosed Date Resolved Date Dyslipidemia 12/10/2024 03/25/2025 Assessment & Plan (03/25/2025 3:17 PM EST): Continue atorvastatin 80 mg nightly. LDL is close to goal of <70 Orders: atorvastatin (LIPITOR) 80 mg tablet; Take 1 tablet (80 mg total) by mouth at bedtime. Lipid panel with reflex to direct LDL; Future Cough 08/06/2024 03/25/2025 Dyspnea 04/04/2023 07/09/2024 Overview (02/17/2024): Last Assessment & Plan: We did discuss her dyspnea. It is likely due to her underlying COPD. This improves with inhalers. Her stress test was negative for any ischemia. I have asked her to have an echocardiogram done. With her history of COPD, dyspnea and hypertension this will be a good baseline for her. Abnormal EKG 03/29/2023 08/10/2024 Overview (02/17/2024): Last Assessment & Plan: We did discuss her abnormal EKG. This was nonspecific. She is not having any significant symptoms. Her EKG today is completely normal. She did have an exercise stress test that showed no evidence of ischemia or infarction. We did discuss the implications of this. Recurrent sinus infections 01/24/2020 0 07/09/2024 Assessment & Plan (03/28/2024 8:01 PM EST): Continue flonase/montelukast and resume claritin Other specified health status 04/13/2018 08/10/2024 Overview (02/17/2024): Other specified health status YOEL on CPAP 03/08/2018 07/09/2024 Overview (02/17/2024): 01/27/2020 to 02/25/2020. CPAP@ 8-14/Average 10.4/Max 11.3. 73% compliant with using the machine for >4 hours/day. Average use is 5.25 hours a night with AHI 1.6. Last Assessment & Plan: Advised to use the CPAP more than 4 hours every night Asthma 03/08/2018 03/25/2025 Overview (02/17/2024): Last Assessment & Plan: Sharri has severe persisting asthma She should start back with the Dupixent that was working excellent Next injection of Dupixent on Tuesday in the infusion center Continue with Trelegy 1 puff once a day as indicated Continue with Singulair 10 mg p.o. every day Continue with albuterol as needed I will give her an appointment in [address] Doyle Assessment & Plan (11/23/2024 1:14 PM EDT): On examination today patient does have some wheezing. She has albuterol nebulizer at home and will go home and use this today. She has been advised to follow-up with her primary care provider if this does not improve. Assessment & Plan (07/26/2024 8:09 PM EDT): She is prescribed another course of prednisone, 40mg daily for 5 days She will call her senior grant writer to schedule an appt. She is worried about her recurrent asthma flares and rightfully so States she has not yet received fasenra Continue trelegy daily See HPI O2 sat today is 96% Orders: albuterol 2.5 mg /3 mL (0.083 %) nebulizer solution; Take 3 mL (2.5 mg total) by nebulization every 6 (six) hours if needed for wheezing. predniSONE (DELTASONE) 20 mg tablet; Take 2 tablets (40 mg total) by mouth 1 (one) time each day for 5 days. Assessment & Plan (03/28/2024 8:01 PM EST): continue trelegy daily, albuterol PRN, montelukast 10 mg nightly. Couldn't tolerate Dupixent injection due to side effects. Follow up with pulmonology Encounters Date Type Department Care Team Description 04/29/2025 Telephone Adult Medicine [address] [phone] Abraham Roa MD 04/26/2025 9:45 AM EST Office Visit Adult [address] [phone] Abraham Roa MD Mastoiditis of right side (Primary Dx); Primary hypertension; Type 2 diabetes mellitus with microalbuminuria (CMS/HCC V24, CMS/HCC V28); Mixed hyperlipidemia 04/24/2025 7:35 AM EST Lab Draw Station [address] Dyslipidemia; B12 deficiency; Primary hypertension; Type 2 diabetes mellitus with microalbuminuria (CMS/HCC V24, CMS/HCC V28) 04/24/2025 Results Follow-Up Adult [address] [phone] Abraham Roa MD 04/19/2025 3:48 PM EST - 04/19/2025 4:15 PM EST Emergency [facility] Emergency [address] [place] [phone] Osvaldo German MD Hemotympanum, bilateral (Primary Dx) Discharge Disposition: Home or Self Care 04/17/2025 3:30 PM EST Office Visit [address] [phone] Abraham Roa MD Subacute maxillary sinusitis (Primary Dx); Non-seasonal allergic rhinitis due to pollen; Primary hypertension 03/25/2025 12:30 PM EST Office Visit [address] [phone] Abraham Roa MD Primary hypertension (Primary Dx); Type 2 diabetes mellitus with microalbuminuria (CMS/HCC V24, CMS/HCC V28); B12 deficiency; CKD stage 3a, GFR 45-59 ml/min (CMS/HCC V24, CMS/HCC V28); Degeneration of intervertebral disc of lumbar region with discogenic back pain and lower extremity pain; Dyslipidemia; Fibromyalgia; YOEL and COPD overlap syndrome (CMS/HCC V24, CMS/HCC V28); Osteopenia of multiple sites; Severe persistent asthma without complication (CMS/HCC V28); Non-seasonal allergic rhinitis due to pollen; Generalized anxiety disorder; Colon cancer screening; Sensorineural hearing loss (SNHL) of both ears 03/21/2025 Results Follow-Up [address] [phone] Ramona Abraham PA 03/21/[address] [phone] Abraham Roa MD 03/20/2025 12:40 PM EST Lab Draw Station - 175 [facility] [address] [phone] Type 2 diabetes mellitus with microalbuminuria (CMS/HCC V24, CMS/HCC V28); Severe persistent asthma, unspecified whether complicated ([facility] V28) 03/18/2025 2:30 PM EST Office Visit Walk-In [facility] - [place] [facility] [address] [place] [phone] Carley Duran NP Acute non-recurrent maxillary sinusitis (Primary Dx); Otitis of both ears 03/18/2025 Nurse Triage Adult Medicine [facility] [address] [place] [phone] Abraham Roa MD 02/11/2025 3:15 PM EDT Office Visit Pulmonology [address] [place] [address] Nick Doyle MD Severe persistent asthma, unspecified whether complicated ([facility] V28) (Primary Dx); YOEL (obstructive sleep apnea); Eosinophilia, unspecified type from Last 3 Months Immunizations Immunization Administration Dates Next Due COVID-19 (Pfizer/Comirnaty) 12yo and older 02/16/2024 H1N1 Inj Preservative Free 03/20/2009 Influenza Quadravalent, 0.5m l (Fluad) 65yo and older 02/11/2021 Influenza Whole 01/24/2009,03/03/2006 Influenza trivalent, 0.5mL ( Fluzone High-dose) 65yo and older 02/16/2024,02/17/2023,03/10/2022,03/12,03/21/2018 Influenza trivalent, with pr eservative (Fluzone; Afluria) 6mo and older 02/23/2017,03/15/2016,03/03/2015,03/14,03/15/2013,02/11/2012,02/12/2011 ,06/26/2008,03/29/2007 Influenza, Unspecified 02/24/2021 Pfizer SARS-CoV-2 COVID-19, mRNA, LNP-S, preservative free 02/24/2021 Pneumococcal conjugate 13 va lent (Prevnar 13, PCV13) 2mo and older 05/23/2018 Pneumococcal conjugate 20 va lent (Prevnar 20, PCV 20) 2mo and older 03/16/2023 Pneumococcal polysaccharide 23 valent (Pneumovax 23) 2yo and older 03/14/2014,03/03/2006 RSV, bivalent, protein subun it RSVpreF, 0.5mL, Preservative Free (Arexvy) 50yo and older 04/05/2022 Td Tetanus diptheria (Tdvax) 7yo and older 05/23/2018 Tdap Tetanus diptheria acell ular pertussis (Boostrix; Adacel) 7yo and older 02/07/2008 Zoster Live 04/05/2022,03/15/2013 Zoster recombinant (Shingrix ) 19yo and older 04/05/2022,02/24/2021,02/11/2021 Surgical History Surgery Date Site/Laterality Comments HYSTERECTOMY 1991 PROCEDURE: HISTORICAL HYSTERECTOMY; COMMENT: fibroids, menorrhagia, ovaries are left in CHOLECYSTECTOMY 1986 PROCEDURE: HISTORICAL CHOLECYSTECTOMY; COMMENT: open cholecystectomy BACK SURGERY 01/2017 PROCEDURE: HISTORICAL BACK SURGERY; COMMENT: Dr Winston Clark L5-S1 laminectomy COLONOSCOPY 07/01/2016 PROCEDURE: HISTORICAL COLONOSCOPY; COMMENT: Tubular adenoma. 5 year repeat CARPAL TUNNEL RELEASE 09/2010 PROCEDURE: HISTORICAL CARPAL TUNNEL REL; COMMENT: Dr Cotton COLONOSCOPY 04/19/2006 PROCEDURE: HISTORICAL COLONOSCOPY OTHER SURGICAL HISTORY Bilateral PROCEDURE: HISTORY OTHER; COMMENT: Dr Argueta -2013 NASAL ENDOSCOPY, POLYPECTOMY BREAST BIOPSY , Right PROCEDURE: BX BREAST; PERC NEEDLE CORE W/IMAG GUID; COMMENT: x2 b9 ESOPHAGOGASTRODUODENOSCOPY 11/20/2020 PROCEDURE: [place] EGD TRANSORAL BIOPSY SINGLE/MULTIPLE; COMMENT: [place]. Single duodenal polyp, resected. Atrophic gastritis CARDIAC CATHETERIZATION DONE ON 10/12/2024 AT [facility] INDICATIONS:Chest pain. Medical History Medical History Date Comments Asthma 02/13/2018 DX:Asthma Adenomatous polyp of colon 02/13/2018 DX:Ad enomatous polyp of colon Allergic rhinitis due to pollen 03/08/2018 DX:Allergic rhinitis due to pollen B12 deficiency 02/13/2018 DX:B12 deficienc y BPPV (benign paroxysmal posi tional vertigo) 02/13/2018 DX:BPPV (benign paroxysmal positional vertigo); COMMENT: 11/03/17 referral to [facility] Carpal tunnel syndrome 04/13/2018 DX:Carpal tunnel syndrome Chronic right-sided low back pain without sciatica 02/13/2018 DX:Chronic right-sided low b ack pain without sciatica DDD (degenerative disc disea se), lumbar 04/13/2018 DX:DDD (degenerative disc di sease), lumbar Fibromyalgia 04/13/2018 DX:Fibromyalgia Hyperlipidemia 02/13/2018 DX:Hyperlipidemi a Hypertension 04/13/2018 DX:Hypertension Microalbuminuria 04/13/2018 DX:Microalbumin uria Multiple pulmonary nodules 04/13/2018 DX:Mu ltiple pulmonary nodules YOEL on CPAP 03/08/2018 DX:YOEL on CPAP Osteoarthritis 04/13/2018 DX:Osteoarthriti s Osteopenia 04/13/2018 DX:Osteopenia; C OMMENT: DEXA Scan 09/2011 Patient is Voodoo 04/13/2018 DX: Patient is Voodoo Post-nasal drainage 03/08/2018 DX:Post-nasa l drainage Renal cyst 04/13/2018 DX:Renal cyst Severe persistent asthma wit hout complication (CMS/HCC V28) 03/08/2018 DX:Severe persistent asthma without complication 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 Repeat 5 years Type 2 diabetes mellitus wit h neurological manifestations (CMS/HCC V24, CMS/HCC V28) 04/13/2018 DX:Type 2 diabetes mellitus with neurological manifestations (HCC) Type 2 diabetes mellitus wit h renal manifestations (CMS/HCC V24, CMS/HCC V28) 04/13/2018 DX:Type 2 diabetes mellitus with renal manifestations (HCC) Atrophic gastritis 11/24/2020 DX:Atrophic g astritis Anemia 06/11/2022 DX:Anemia Family History Medical History Relation Name Comments Other: chondrosarcoma Brother 1 Gil a ge late 30's 3 mo after Dx Asthma Brother 2 Diabetes Brother 2 Thyroid disease Brother 2 Diabetes Father Asthma, HTN . 8 4 yo as of 02/2018 COPD Mother CHF, age 7 4, secondary smoke Breast cancer Other p cousin 50s Hypertension Sister 1 Genin Hypertension Sister 2 Inge Etoh Other: lupus Sister 3 chan age 32 Other: pulmonary embolism Sister 4 Poornima sm oker, of PE age 32 Asthma Sister 5 Hypertension Sister 5 Other: Other Sister 5 arthritis Diabetes Son 1 Other: Other Son 1 lupus Diabetes Son 2 Thyroid disease Son 2 Ulcerative colitis Son 3 Ovarian cancer Neg Hx Uterine cancer Neg Hx Relation Name Status Comments Brother 1 Gil Brother 2 Father Alive Mother Other p cousin 50s Alive Sister 1 Genin Alive Sister 2 Inge Alive Sister 3 chan Sister 4 Poornima Sister 5 Son 1 Son 2 Son 3 Social History Tobacco Use Types Packs/Day Years Used Date Smoking Tobacco: Never Smokeless Tobacco: Never Tobacco Cessation:Counseling Given: Not Answered Alcohol Use Standard Drinks/Week Comments No 0 (1 standard drink = 0.6 oz pur e alcohol) Comments No Sex and Gender Information Value Date Recorded Sex Assigned at Not on file Legal Sex Female 12:52 AM EST Gender Identity Not on file Sexual Orientation Not on file Obstetrics History Para Term AB IAB SAB Ectopic Multiple Livin g Live Births 4 4 4 4 Date Outcome GA Total Labor Labor/2nd/3rd Weight Sex Type Anes PTL Sherrie A1 A5 Name Clin Term Term Term Term Last Filed Vital Signs Vital Sign Reading Time Taken Comments Blood Pressure 134/67 04/26/2025 9:57 AM EST A Pulse 76 04/26/2025 9:53 AM EST Temperature 36.2 C (97.2 F) 04/26/2025 9:53 AM EST Respiratory Rate 18 04/19/2025 3:06 PM EST Oxygen Saturation 98% 04/26/2025 9:53 AM EST Inhaled Oxygen Concentration - - Weight 86.8 kg (191 lb 6.4 oz) 04/26/2025 9:53 A M EST Height 170.2 cm (5' 7.01 ) 04/26/2025 9:53 AM ES T Body Mass Index 29.97 04/26/2025 9:53 AM EST Plan of Treatment Upcoming Encounters Date Type Department Care Team (Late st Contact Info) Description 05/21/2025 9:45 AM EST Office Visit Pulmonology - [address] [place] [address] Nick Doyle MD [address] [place] [phone] 06/04/2025 8:30 AM EST Appointment [facility] Density [address] [place] [address] 06/11/2025 11:00 AM EST Office Visit Adult [address] [phone] Ramona Abraham PA [address] [place] [address] Health Maintenance Due Date Last Done Comments Social Influencers of Health Screening 04/24/2022 Zoster Vaccines (2 of 2) 05/31/2022 022, 04/05/2022, 02/24/2021, Additional history exists Depression Screening 05/16/2024 COVID-19 Vaccine ( season) 2025 02/16/2024, 03/16/2023, 05/27/2022, Additional history exists Influenza Vaccine (#1) 2025 , 02/17/2023, 03/10/2022, Additional history exists Falls Risk Assessment 03/28/2025 03/28/2024 Medicare Annual Wellness Visit 03/28/2025 03/28/2024 Colorectal Cancer Screening: Colonoscopy 04/12/2025 10/10/2024, 09/14/2021 Diabetes: Annual Urine Albumin-Creatinine Ratio (uACR) 07/16/2025 07/16/2024, 07/26/2022 Diabetes: Annual Foot Exam 07/26/2025 07/26/2024, Diabetes: Blood Sugar Control Test (HGBA1C) 10/23/2025 04/24/2025, 03/20/2025, 11/26/2024, Additional history exists Diabetes: Annual Retina Eye Exam 04/09/2026 04/09/2025, 04/09/2025 Diabetes: Annual GFR (Glomerular Filtration Rate) 04/24/2026 04/24/2025, 03/20/2025, 11/26/2024, Additional history exists Hypertension/CHF/CAD Annual BMP Blood Test 04/24/2026 04/24/2025, 03/20/2025, 11/26/2024, Additional history exists Breast Cancer Screening 01/28/2027 01/29/20, 03/28/2024, 03/16/2023, Additional history exists DTaP,Tdap,and Td Vaccines (3 - Td or Tdap) 05/23/2028 05/23/2018, 02/07/2008 Cholesterol Screening (Lipid Panel) 04/24/2030 04/24/2025, 07/16/2024, 05/20/2023 Osteoporosis Screening (Bone Density Screening) 03/16/2033 03/16/2023, 06/01/2019 Hepatitis C Screening Completed 07/26/2022 Pneumococcal Vaccine: 50+ Years Completed 03/16/2023, 05/23/2018, 03/14/2014, Additional history exists RSV Immunization Adult Patients Completed 08/10/2024, 04/05/2022 HIB Vaccines Aged Out No longer eligi ble based on patient's age to complete this topic HPV Vaccines Aged Out No longer eligi ble based on patient's age to complete this topic Hepatitis A Vaccines Aged Out No long er eligible based on patient's age to complete this topic Hepatitis B Vaccines Aged Out No long er eligible based on patient's age to complete this topic IPV Vaccines Aged Out No longer eligi ble based on patient's age to complete this topic MMR Vaccines Aged Out No longer eligi ble based on patient's age to complete this topic Meningococcal ACWY Vaccine Aged Out N o longer eligible based on patient's age to complete this topic Meningococcal B Vaccine Aged Out No l onger eligible based on patient's age to complete this topic RSV Immunization Patients Under 20 months Aged Out No longer eligible based on patient's age to complete this topic Varicella Vaccines Aged Out No longer eligible based on patient's age to complete this topic Procedures Procedure Name Priority Date/Time Associated Diagnosis Comments HEMOGLOBIN A1C Routine 04/24/2025 7:36 AM EST Type 2 diabetes mellitus with microalbuminuria ([facility] V24, [facility] V28) COMPREHENSIVE METABOLIC PANEL Routine 04/24/2025 7:36 AM EST Primary hypertension VITAMIN B12 Routine 04/24/2025 7:36 AM EST B12 deficiency LIPID PANEL WITH REFLEX TO DIRECT LDL Routine 04/24/2025 7:36 AM EST Dyslipidemia ECG EXTERNAL Routine 04/20/2025 9:[address] REPORT Routine 04/20/2025 9: [address] REPORT Routine 04/20/2025 9: 34 AM EST EXTERNAL DIABETIC RETINA EYE EXAM Routine 04/09/2025 9:16 AM EST CBC WITH AUTO DIFFERENTIAL Routine 03/20/2025 12:40 PM EST Severe persistent asthma, unspecified whether complicated (CMS/HCC V28) CBC AND DIFFERENTIAL Routine 03/20/2025 12:40 PM EST Severe persistent asthma, unspecified whether complicated (CMS/HCC V28) HEMOGLOBIN A1C Routine 03/20/2025 12:40 PM EST Type 2 diabetes mellitus with microalbuminuria (CMS/HCC V24, CMS/HCC V28) BASIC METABOLIC PANEL Routine 03/20/2025 12:40 PM EST Type 2 diabetes mellitus with microalbuminuria (CMS/HCC V24, CMS/HCC V28) EXTERNAL MAMMOGRAM REPORT 01/28/2025 COLONOSCOPY Routine 10/10/2024 5:01 PM EDT MICROALBUMIN CREATININE URINE RATIO Routine 07/16/2024 8:55 AM EST Type 2 diabetes mellitus with microalbuminuria (CMS/HCC V24, CMS/HCC V28) DXA BONE DENSITY STUDY 1+ SITS AXIAL SKEL Routine 03/16/2023 1:17 PM EDT Encounter for screening for osteoporosis DIABETES FOOT EXAM Routine 02/17/2023 HEPATITIS C SCREENING Routine 07/26/2022 from Last 3 Months or Most Recently Relevant to Health Maintenance Results * Lipid panel with reflex to direct LDL (04/24/2025 7:36 AM EST) [facility] Signature Cholesterol 143 0 - 200 mg/dL 04/24/2025 10:41 AM [facility] Triglycerides 74 0 - 150 mg/dL 04/24/2025 10:41 AM [facility] HDL 64 >=40 mg/dL 04/24/2025 10:41 AM [facility] LDL Calculated 64 0 - 100 mg/dL 04/24/2025 10:41 AM [facility] Comment:Estimated LDL is valentín culated using the Friedewald equation: Total cholesterol - HDL cholesterol - (Triglycerides/5) VLDL Cholesterol Valentín 14.8 mg/dL 04/24/2025 10:41 AM [facility] Non HDL Chol. (LDL+VLDL) 79 <145 mg/dL 04/24/2025 10:41 AM [facility] Chol/HDL Ratio 2.2 0.0 - 4.4 04/24/2025 10:41 AM [facility] Blood Venous blood specimen / Unknown Venipuncture / Unknown 04/24/2025 7:36 AM EST 04/24/2025 7:36 AM EST Abraham Roa MD LAB BLOOD ORDERA BLES Final Result [facility] [address] [place] [address], * (ABNORMAL) Hemoglobin A1c (04/24/2025 7:36 AM EST) Only the most recent of2 resultswithin the time period is included. Hemoglobin A1C 6.8(H) <6.5 % LAB CHEMISTRY METHOD 04/26/2025 11:50 AM [facility] Mean Bld Glu Estim. 148 mg/dL LAB CHEMISTRY METHOD 04/26/2025 11:50 AM [facility] Blood Venous blood specimen / Unknown Venipuncture / Unknown 04/24/2025 7:36 AM EST 04/24/2025 7:36 AM EST Abraham Roa MD LAB BLOOD ORDERA BLES Final Result Performing Organization Address [facility]/ZIP Co de Phone Number [facility] [address] [place] [address], [place] [phone] * Vitamin B12 (04/24/2025 7:36 AM EST) [facility] Vitamin B-12 310 211 - 911 pcg/mL 04/24/2025 10:37 AM EST [facility] Blood Venous blood specimen / Unknown Venipuncture / Unknown 04/24/2025 7:36 AM EST 04/24/2025 7:36 AM EST Abraham Roa MD LAB BLOOD ORDERA BLES Final Result Performing Organization Address [facility]/ZIP Co de Phone Number [facility] [address] [place] [address], [place] [phone] * (ABNORMAL) Comprehensive metabolic panel (04/24/2025 7:36 AM EST) [facility] Sodium 140 133 - 145 mmol/L 04/24/2025 10:41 AM [facility] Potassium 4.2 3.5 - 5.5 mmol/L 04/24/2025 10:41 AM [facility] Chloride 101 96 - 110 mmol/L 04/24/2025 10:41 AM [facility] CO2 30 21 - 32 mmol/L 04/24/2025 10:41 AM [facility] Anion Gap 9 3 - 11 04/24/2025 10:41 AM [facility] Glucose 132(H) 70 - 100 mg/dL 04/24/2025 10:41 AM EST [facility] BUN 15 5 - 25 mg/dL 04/24/2025 10:41 AM [facility] Creatinine 1.04 0.50 - 1.10 mg/dL 04/24/2025 10:41 AM [facility] eGFR 57(L) >=60 mL/min/1. 73m2 04/24/2025 10:41 AM [facility] Comment:Calculation based on the Chronic Kidney Disease Epidemiology Collaboration (CKD-EPI) equation refit without adjustment for race. BUN/Creatinine Ratio 14.4 04/24/2025 10:41 AM [facility] Calcium 9.6 8.5 - 10.5 mg/dL 04/24/2025 10:41 AM [facility] AST (SGOT) 22 10 - 42 unit/L 04/24/2025 10:41 AM [facility] ALT (SGPT) 27 10 - 60 unit/L 04/24/2025 10:41 AM [facility] Alkaline Phosphatase 95 42 - 121 unit/L 04/24/2025 10:41 AM [facility] Total Protein 6.9 6.0 - 8.0 g/dL 04/24/2025 10:41 AM [facility] Albumin 4.2 3.2 - 5.0 g/dL 04/24/2025 10:41 AM [facility] Total Bilirubin 0.6 0.0 - 1.4 mg/dL 04/24/2025 10:41 AM [facility] Blood Venous blood specimen / Unknown Venipuncture / Unknown 04/24/2025 7:36 AM EST 04/24/2025 7:36 AM EST us Abraham Roa MD LAB BLOOD ORDERA BLES Final Result [facility] [address] [place] [address], [place] [phone] * ECG-External (04/20/2025 9:38 AM EST) us Historical Provider MD ECG ORDERABLES Final Res ult * External CT Report (04/20/2025 9:36 AM EST) Only the most recent of2 resultswithin the time period is included. Anatomical Region Laterality Modality Computed Tomogra phy us Historical Provider MD IMG CT PROCEDURES Final R esult * External Diabetic Retina Eye Exam Report (04/09/2025 9:16 AM EST) Anatomical Region Laterality Modality Ultrasound us Carlota Sevilla OD IMG US PROCEDURES Final Result * (ABNORMAL) CBC auto differential (03/20/2025 12:40 PM EST) WBC 9.5 4.8 - 10.8 K/mcL LAB HEMETOLOGY METHOD 03/20/2025 2:29 PM [facility] RBC 3.70(L) 3.80 - 4.80 M/mcL LAB HEMETOLOGY METHOD 03/20/2025 2:29 PM [facility] Hemoglobin 11.9 11.5 - 16.0 g/dL LAB HEMETOLOGY METHOD 03/20/2025 2:29 PM [facility] Hematocrit 35.9 35.0 - 47.0 % LAB HEMETOLOGY METHOD 03/20/2025 2:29 PM [facility] MCV 97.0 79.0 - 98.0 FL LAB HEMETOLOGY METHOD 03/20/2025 2:29 PM [facility] MCH 32.2(H) 27.0 - 32.0 pcg LAB HEMETOLOGY METHOD 03/20/2025 2:29 PM [facility] MCHC 33.1 32.0 - 37.0 g/dL LAB HEMETOLOGY METHOD 03/20/2025 2:29 PM [facility] RDW 12.0 11.0 - 15.0 % LAB HEMETOLOGY METHOD 03/20/2025 2:29 PM [facility] Platelets 251 130 - 400 K/mcL LAB HEMETOLOGY METHOD 03/20/2025 2:29 PM [facility] MPV 10.9 7.0 - 11.0 FL LAB HEMETOLOGY METHOD 03/20/2025 2:29 PM [facility] NRBC 0.0 <1.0 % LAB HEMETOLOGY METHOD 03/20/2025 2:29 PM [facility] NRBC Absolute 0.00 <0.10 K/mcL LAB HEMETOLOGY METHOD 03/20/2025 2:29 PM [facility] Neutrophils Relative 45.7 % LAB HEMETOLOGY METHOD 03/20/2025 2:29 PM [facility] Lymphocytes Relative 35.2 % LAB HEMETOLOGY METHOD 03/20/2025 2:29 PM [facility] Monocytes Relative 6.9 % LAB HEMETOLOGY METHOD 03/20/2025 2:29 PM [facility] Eosinophils Relative 11.3 % LAB HEMETOLOGY METHOD 03/20/2025 2:29 PM [facility] Basophils Relative 0.7 % LAB HEMETOLOGY METHOD 03/20/2025 2:29 PM [facility] Immature Granulocytes Relative 0.2 % LAB HEMETOLOGY METHOD 03/20/2025 2:29 PM [facility] Neutrophils Absolute 4.33 1.50 - 7.00 K/mcL LAB HEMETOLOGY METHOD 03/20/2025 2:29 PM [facility] Lymphocytes Absolute 3.33 1.00 - 5.00 K/mcL LAB HEMETOLOGY METHOD 03/20/2025 2:29 PM EST [facility] Monocytes Absolute 0.65 0.20 - 1.00 K/mcL LAB HEMETOLOGY METHOD 03/20/2025 2:29 PM [facility] Eosinophils Absolute 1.07(H) 0.00 - 0.50 K/mcL LAB HEMETOLOGY METHOD 03/20/2025 2:29 PM EST [facility] Basophils Absolute 0.07 0.00 - 0.20 K/mcL LAB HEMETOLOGY METHOD 03/20/2025 2:29 PM [facility] Immature Granulocytes Absolute 0.02 0.00 - 0.03 K/[facility] LAB HEMETOLOGY METHOD 03/20/2025 2:29 PM [facility] Blood Venous blood specimen / Unknown Venipuncture / Unknown 03/20/2025 12:40 PM EST 03/20/2025 12:40 PM EST us Nick Doyle MD LAB BLOOD ORDERABLES Final Resul t [facility] [address] [place] [address], * (ABNORMAL) Basic metabolic panel (03/20/2025 12:40 PM EST) Sodium 137 133 - 145 mmol/L LAB CHEMISTRY METHOD 03/20/2025 6:38 PM [facility] Potassium 4.1 3.5 - 5.5 mmol/L LAB CHEMISTRY METHOD 03/20/2025 6:38 PM [facility] Chloride 103 96 - 110 mmol/L LAB CHEMISTRY METHOD 03/20/2025 6:38 PM [facility] CO2 30 21 - 32 mmol/L LAB CHEMISTRY METHOD 03/20/2025 6:38 PM [facility] Anion Gap 4 3 - 11 LAB CHEMISTRY METHOD 03/20/2025 6:38 PM [facility] Glucose 113(H) 70 - 100 mg/dL LAB CHEMISTRY METHOD 03/20/2025 6:38 PM [facility] BUN 12 5 - 25 mg/dL LAB CHEMISTRY METHOD 03/20/2025 6:38 PM [facility] Creatinine 0.95 0.50 - 1.10 mg/dL LAB CHEMISTRY METHOD 03/20/2025 6:38 PM [facility] eGFR 64 >=60 mL/min/1. 73m2 LAB CHEMISTRY METHOD 03/20/2025 6:38 PM [facility] Comment:Calculation based on the Chronic Kidney Disease Epidemiology Collaboration (CKD-EPI) equation refit without adjustment for race. BUN/Creatinine Ratio 12.6 LAB CHEMISTRY METHOD 03/20/2025 6:38 PM [facility] Calcium 9.3 8.5 - 10.5 mg/dL LAB CHEMISTRY METHOD 03/20/2025 6:38 PM [facility] Blood Venous blood specimen / Unknown Venipuncture / Unknown 03/20/2025 12:40 PM EST 03/20/2025 12:40 PM EST Ramona RAGSDALE LAB BLOOD ORDERABLES Final Re sult [facility] [address] [place] [address], * External Mammogram Report (01/28/2025) Anatomical Region Laterality Modality Mammography us Provider [facility] IMG BI PROCEDURES Final Result * COLONOSCOPY (10/10/2024 5:01 PM EDT) Anatomical Region Laterality Modality Endoscopy Historical Provider GI~PROCEDURE ORDERABLES F inal Result * (ABNORMAL) Microalbumin creatinine urine ratio (07/16/2024 8:55 AM EST) Creatinine, Urine 158.0 mg/dL LAB CHEMISTRY METHOD 07/16/2024 1:28 PM EST [facility] Microalb, Ur 42.8(H) 0.0 - 29.0 mg/L LAB CHEMISTRY METHOD 07/16/2024 1:28 PM EST [facility] Microalb/Crea t Ratio 27 <30 mg/g creat LAB CHEMISTRY METHOD 07/16/2024 1:28 PM EST [facility] Urine Urine specimen obtained by clean catch procedure / Unknown Non-blood Collection / Unknown 07/16/2024 8:55 AM EST 07/16/2024 8:55 AM EST Abraham Roa MD LAB URINE ORDERA BLES Final Result [facility] [address] [place] [address], * DXA BONE DENSITY STUDY 1+ SITS AXIAL SKEL (03/16/2023 1:17 PM EDT) Anatomical Region Laterality Modality Bone Densitometr y 07/26/2022 1:51 PM EDT Narrative 03/17/2023 5:32 PM EDT BONE DENSITY Lumbar Spine T-score is -2.2 (SD relative to 20-29 y/o adult) Z-score is -0.1 (SD relative to age matched peers) This is consistent with osteopenia by criteria defined by the WHO. Left Hip T-score is -2.2 Z-score is -0.2 This is consistent with osteopenia by criteria defined by the WHO. Impression: Based on the World Health Organization criteria, Sharri Pruett should be classified as having osteopenia. This patient has a 13% risk of major osteoporotic fracture and a 2.7% risk of hip fracture over the next 10 years. (World Health Organization Fracture Risk Assessment) The [facility] Department of Internal Medicine recommends using National Osteoporosis Foundation (NOF) guidelines in treatment decisions related to osteoporosis. NOF guidelines suggest considering treatment for postmenopausal women and men aged 50 or older presenting with the following: History of hip or vertebral fracture. T-score less than or equal to -2.5 (DXA) at the femoral neck, total hip, or spine, after appropriate evaluation to exclude secondary causes. Low bone mass (T-score between -1.0 and -2.5 at the femoral neck or spine) AND a 10-year probability of a hip fracture greater than or equal to 3% OR a 10-year probability of a major osteoporosis-related fracture greater than or equal to 20% based on the [place]-adapted WHO algorithm Please note that all treatment decisions require clinical judgment and consideration of individual patient factors, including patient preferences, co-morbidities, previous drug use, risk factors not captured in the FRAX model (e.g., frailty, falls, vitamin D deficiency, increased bone turnover, interval significant decline in bone density) and possible under- or over-estimation of fracture risk by FRAX. Procedure Note Janay Moura MD - 06/21/2023 BONE DENSITY Lumbar Spine T-score is -2.2 (SD relative to 20-29 y/o adult) Z-score is -0.1 (SD relative to age matched peers) This is consistent with osteopenia by criteria defined by the WHO. Left Hip T-score is -2.2 Z-score is -0.2 This is consistent with osteopenia by criteria defined by the WHO. Impression: Based on the World Health Organization criteria, Sharri Pruett should beclassified as having osteopenia. This patient has a 13% risk of majorosteoporotic fracture and a 2.7% risk of hip fracture over the next 10years. (World Health Organization Fracture Risk Assessment) The [facility] Department of Internal Medicine recommendsusing National Osteoporosis Foundation (NOF) guidelines in treatmentdecisions related to osteoporosis. NOF guidelines suggest consideringtreatment for postmenopausal women and men aged 50 or older presentingwith the following: History of hip or vertebral fracture. T-score less than or equal to -2.5 (DXA) at the femoral neck, total hip,or spine, after appropriate evaluation to exclude secondary causes. Low bone mass (T-score between -1.0 and -2.5 at the femoral neck or spine)AND a 10-year probability of a hip fracture greater than or equal to 3% ORa 10-year probability of a major osteoporosis-related fracture greaterthan or equal to 20% based on the [place]-adapted WHO algorithm Please note that all treatment decisions require clinical judgment andconsideration of individual patient factors, including patientpreferences, co-morbidities, previous drug use, risk factors not capturedin the FRAX model (e.g., frailty, falls, vitamin D deficiency, increasedbone turnover, interval significant decline in bone density) and possibleunder- or over-estimation of fracture risk by FRAX. Abraham Roa MD IMG DXA PROCEDUR ES Final Result * Diabetes Foot Exam (02/17/2023) [facility] Diabetes: Annual Foot Exam Abstracted Historical Provider HEALTH MAINTENANCE Final Result * Hepatitis C Screening (07/26/2022) [facility] Hepatitis C Screening Abstracted Historical Provider HEALTH MAINTENANCE Final Result from Last 3 Months or Most Recently Relevant to Health Maintenance Insurance [facility] [employer] [employer] Member Subscriber Plan / Payer (Ef fective 2018-Present) Name:Sharri Pruett Relation to Subscriber:Self Name:Sharri Pruett Payer ID:[id number] Group ID:[id number] Type:Not on file Address: [address] [place] [id number] Care Teams 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
[2025-05-08 19:41] VITALS: BP 121/72; PULSE 79; RESP 16; TEMP 36.6; O2SAT 96
[2025-05-08 19:44] VITALS: BP 121/72; PULSE 78; RESP 16; TEMP 36.6; O2SAT 96
== END 2025-05-08 19:46 | disposition home or self-care (01) ==
PROVIDERS: Registered Nurse Emergency; Emergency Provider Emergency Medicine
DX: R51.9 Headache, unspecified (principal); H92.01 Otalgia, right ear; H93.A1 Pulsatile tinnitus, right ear
CPT/HCPCS: 36415; 70496; 70498; 80053; 85025; 85652; 86140; 99283; 99285

== ENCOUNTER → 2025-05-08 16:23 | Outpatient (BNV) | payer OTHER, SELFPAY | PROVIDERS: Emergency Provider Emergency Medicine; Visit Provider Radiology Diagnostic Radiology | DX: H93.13 Tinnitus, bilateral (principal); G50.1 Atypical facial pain | CPT/HCPCS: 70496; 70498 ==